=== PATIENT | male | born 1975 | race Caucasian/White ===

== ENCOUNTER 2022-04-02 15:57 | Emergency (ER) | payer SELFPAY ==
[2022-04-02 16:15] VITALS: BP 113/73; PULSE 66; RESP 16; TEMP 36; O2SAT 97
--- NOTE | 2022-04-02 17:11 | ED.GENADUL_ITS ---
Discharge Plan Disposition Patient Disposition: HOME Condition: Stable Discharge Details Clinical Impression: COVID-19 Primary Care Provider: None,None ED Provider: Rody Plascencia Home Meds and New Rx's Prescriptions: New Paxlovid (EUA) 150 mg x 2- 100 mg tablet See Rx Instructions .ROUTE .COMPLEX Qty: 30 0RF Rx Instructions: take TWO 150 mg tablets of nirmatrelvir with ONE 100 mg tablet of ritonavir twice daily for 5 days Discharge Instructions Instructions: COVID-19 (Coronavirus Disease 2019) (ED) Additional Instructions: Take the medications as directed twice daily for 5 days. Take bzoo-ogy-lwywkap medications for symptoms. Take a multivitamin including zinc, vitamin C and vitamin D3. Follow up with primary care provider in 3-5 days. Return to ED sooner if any worsening or concerns. Increase oral fluids. Please take Tylenol or Ibuprofen with food every 4-6 hours as needed for pain and swelling. Stand Alone Forms: Work Release Medical Decision Making 46-year-old male presents to the ER with chief complaint of fever, mild cough and reportedly had a home positive COVID test this afternoon. He is requesting antiviral medication. CMP ordered. CMP within normal limits we will send Paxil into the pharmacy on file. This text was generated using [employer] dictation system, please disregard any oddities of phrase or misspellings. HPI General Mode of arrival: ambulatory . Date/Time Provider Initiated Documentation: 04/02/22 16:27 . Limitations to Documentation: no limitations . Information obtained by: patient and RN notes reviewed . HPI Narrative: 46-year-old male presents to the ER with chief complaint of fever, mild cough and reportedly had a home positive COVID test this afternoon. He is requesting antiviral medication. He is a smoker. No reported history of kidney problems, high cholesterol, hypertension, heart problems. Does not take any medications on a regular basis. He is also requesting a work note. Related Data Home Medications Medication Instructions Recorded Confirmed nirmatrelvir 300 mg (150 mg x See Rx Instructions PO .COMPLEX 04/02/22 2)-ritonavir 100 mg tablet (EUA) #30 tabs (Paxlovid 300 mg () Previous Rx's Medication Instructions Recorded nirmatrelvir 300 mg (150 mg x See Rx Instructions PO .COMPLEX 04/02/22 2)-ritonavir 100 mg tablet (EUA) #30 tabs (Paxlovid 300 mg () Allergies Allergy/AdvReac Type Severity Reaction Status Date / Time Penicillins AdvReac Unknown Unverified 04/02/22 17:25 General Stated Complaint: RespSymp JANET: 4 Review of Systems All systems reviewed & are unremarkable except as noted in HPI and below Constitutional Constitutional: Reports fever(s) PFSH All Active Problems (Updated 04/02/22 @ 17:56 by Rody Plascencia) COVID-19 (Acute) Social History Smoking/Tobacco Use Status: Current every day Tobacco Type: cigarettes Smoking risk assessment performed?: Yes Substance use type: does not use Exam Narrative Exam Narrative: Constitutional: Alert and oriented x3. Appears stated age. Normal body habitus. Head: Normocephalic, no trauma. Eyes: Pupils PERRL, Red reflex noted, EOM's intact. Eyelids symmetrical without lesions, discharge, or swelling. ENT: Bilateral TM's WNL, External ear normal to inspection, no mastoid TTP, swelling, or erythema, Nasal turbinates WNL, no nasal discharge. Normal dentition, Posterior pharynx WNL, no exudate. Chest: RRR, Normal S1, S2, distal pulses intact. Resp: Lungs clear to auscultation bilaterally, no wheezes, rales, or rhonchi. Abdomen: Soft, non-distended, Normoactive bowel sounds all 4 quads. Musculoskeletal: Normal gait, 5/5 strength to all four extremities. Skin: No suspicious rashes or lesions. Capillary refill less than 2 sec. Neurologic: Cranial nerves II-XII intact. Alert and oriented x 3. Motor: No deficits noted. Sensory: Intact bilaterally all 4 extremities. Hematologic/Lymphatic: No ecchymosis, no lymphadenopathy. Course Vital Signs Vital signs: Vital Signs Temperature 36 C L 04/02/22 16:15 Pulse 66 04/02/22 16:15 Respiratory Rate 16 04/02/22 16:15 Blood Pressure 113/73 04/02/22 16:15 Pulse Oximetry 97 04/02/22 16:15 Temperature 36 C L 04/02/22 16:15 Temperature Source Skin 04/02/22 16:15 Pulse 66 04/02/22 16:15 Respiratory Rate 16 04/02/22 16:15 Blood Pressure 113/73 04/02/22 16:15 Blood Pressure Position Sitting 04/02/22 16:15 Pulse Oximetry 97 04/02/22 16:15 Oxygen Delivery Method Room Air 04/02/22 16:15 Oxygen Flow Rate 0 04/02/22 16:15 Pain Level 5 04/02/22 16:15 Comment 04/02/22 16:15
[2022-04-02 17:38] LABS: ALT 48 U/L (16-63); AST 36 U/L (15-37); Albumin 3.9 g/dL (3.4-5.0); Alkaline Phosphatase 84 U/L (46-116); Anion Gap 8.5 mmol/L (3-11); BUN 16 mg/dL (7-18); Bilirubin, Total 0.3 mg/dL (0.2-1.0); CO2 26.5 mmol/L (21.0-32.0); CREATININE 1.3 mg/dL (0.70-1.30); Calcium 8.5 mg/dL (8.5-10.1); Chloride 104 mmol/L (98-107); Estimated GFR 58.92 (mL/min/1.73m2); Glucose 99 mg/dL (74-106); Sodium 139 mmol/L (136-145); Total Protein 7.6 g/dL (6.4-8.2)
== END 2022-04-02 18:00 | disposition home or self-care (01) ==
PROVIDERS: Emergency Provider Registered Nurse Emergency
DX: U07.1 COVID-19 (principal)
CPT/HCPCS: 80053; 99283

== ENCOUNTER 2024-06-11 11:14 | Inpatient (IN) | payer MEDICAID, SELFPAY ==
[2024-06-11] VITALS (92 sets, daily range): BP systolic 79–194; BP diastolic 41–109; PULSE 61–207; RESP 5–43; TEMP 36.2–39.3; O2SAT 86–99
--- NOTE | 2024-06-11 11:15 | RT.EKG_ITS ---
APPROVED REPORT Exam: Resting ECG Reason for Exam: SOB, Chest Pressure Patient Location: E HR:184 bpm ECG Measurements Heart Rate 184 AXIS DC [id number] P [id number] QRSd 79 QRS 62 QT 254 T 32 QTc 455 Conclusion Atrial fibrillation with rapid V-rate 184
--- NOTE | 2024-06-11 11:15 | DI.RAD_ITS ---
Exam(s) XR PORTABLE CHEST AP EXAM: XR PORTABLE CHEST AP CLINICAL HISTORY: CP TECHNIQUE: 2D digital imaging was performed of the chest. One image was obtained. An AP view was ob tained. COMPARISON: No exams were available for comparison FINDINGS: MEDIASTINUM: Normal. HEART: Normal. PULMONARY VASCULATURE: Normal. LUNGS: There is an opacity in the right hilum. The lungs are otherwise clear. PLEURAL SPACE: No pleural effusion or pneumothorax. BONE:Within normal limits for the patient's age. OTHER FINDINGS:Normal. IMPRESSION: Opacity in the right hilum. This may represent the central pulmonary vasculature, central infiltrate or central mass/adenopathy. Follow-up with a CT scan of the chest with contrast is recommended. DATA REPOSITORY: RADIATION DOSE DELIVERED:
[2024-06-11] MEDS: dilTIAZem 25 MG/5 ML VIAL ×2 (11:30→11:36)
[2024-06-11 11:45] LABS: Lactate 1.9 mmol/L (0.6-1.4)
[2024-06-11 11:49] LABS: Abs Immature Grans 0.18 10^3/uL (0.0-0.06); Absolute Eosinophil Count 0.05 10^3/uL (0.0-0.7); Basophils % 0.6 %; Eosinophils % 0.3 %; HCT 49.9 % (40.0-50.0); HGB 16.9 g/dL (13.5-17.5); Lymphocytes % 3.4 %; MCH 31.6 pg (27.0-33.0); MCHC 33.9 % (32.0-36.0); MCV 93 fL (80-95); MPV 10.3 fL (8.0-11.0); Monocytes % 5.2 %; Neutrophils % 89.5 %; Platelet Count 215 10^3/uL (130-400); RBC 5.34 10^6/uL (4.36-5.78); RDW 12.4 % (11.8-14.1); RDW-SD 42.6 fL; WBC 17.79 10^3/uL (4.4-10.8)
[2024-06-11 11:50] LABS: Absolute Basophil Count 0.11 10^3/uL (0.0-0.2); Absolute Monocyte Count 0.93 10^3/uL (0.1-0.8); Absolute Neutrophil Count 15.92 10^3/uL (1.2-6.7)
[2024-06-11] MEDS: ACETAMINOPHEN 1,000 MG/100 ML BTL 400 MG IVPB (11:53)
--- NOTE | 2024-06-11 11:56 | ED.GENADUL_ITS ---
Discharge Plan Disposition Patient Disposition: Admit to [facility] Condition: Fair Discharge Details Chief Complaint: SOB Clinical Impression: Community acquired bacterial pneumonia, Atrial fibrillation with rapid ventricular response, Hyperglycemia, Sepsis Admit Date/Time: 06/11/24 12:44 Admit Provider: Arthur Teresa Attending Provider: Arthur Teresa Primary Care Provider: None,None ED Provider: Makeda Oconnor Discharge Data Discharge Date/Time-TO BE ENTERED AT DEPARTURE: 06/11/24 14:23 HPI General Date/Time Provider Initiated Documentation: 06/11/24 11:20 . Limitations to Documentation: physical limitation . Information obtained by: patient and family . HPI Narrative: 48-year-old gentleman with past medical history of daily alcohol use presents for evaluation of fever shortness of breath and palpitations. He reports that he has been having fever since Monday, 4 days, reports fever has been very high. Associated with some shortness of breath and difficulty talking. Denies any known productive cough. States when he stands up he feels very dizzy. says that he has been having some difficulty getting around because of how sick he has been. No known sick contacts. Related Data Home Medications ?Medication ?Instructions ?Recorded ?Confirmed nirmatrelvir 300 mg (150 mg See Rx Instructions PO .COMPLEX 04/02/22 x2)-ritonavir 100 mg tablet,dose #30 tabs pack (Paxlovid) Previous Rx's ?Medication ?Instructions ?Recorded nirmatrelvir 300 mg (150 mg See Rx Instructions PO .COMPLEX 04/02/22 x2)-ritonavir 100 mg tablet,dose #30 tabs pack (Paxlovid) Allergies Allergy/AdvReac Type Severity Reaction Status Date / Time Penicillins AdvReac Unknown Other (See Unverified 06/11/24 11:29 Comment) General Stated Complaint: SOB JANET: 1 Exam Narrative Exam Narrative: Review of Systems: All systems reviewed & are unremarkable except as noted in HPI and below Well-developed, ill-appearing NCAT PERRL, normal conjunctiva Tachycardic, normal blood pressure Tachypnea, some accessory muscle use, focal abnormal breath sounds in the right lower lung ponce Nondistended abdomen , soft nontender Extremities w/o deformity, no cyanosis, no edema skin is warm but has a mottled appearance no focal neurologic deficits Appropriate mood and affect Course Vital Signs Vital signs: Vital Signs Temperature 37.5 C 06/11/24 11:21 Pulse 187 H 06/11/24 11:21 Respiratory Rate 43 H 06/11/24 11:21 Blood Pressure 149/95 H 06/11/24 11:21 Pulse Oximetry 93 06/11/24 11:21 Temperature 37.5 C 06/11/24 11:21 Temperature Source Oral 06/11/24 11:21 Pulse 94 H 06/11/24 11:40 Pulse 141 H 06/11/24 11:41 Respiratory Rate 27 H 06/11/24 11:41 Respiratory Effort Short of Breath, Labored 06/11/24 11:38 Respiratory Depth Deep 06/11/24 11:38 Respiratory Pattern Tachypnea 06/11/24 11:38 Blood Pressure 122/72 06/11/24 11:40 Blood Pressure Mean 87 06/11/24 11:40 Blood Pressure Position Sitting 06/11/24 11:21 Pulse Oximetry 94 06/11/24 11:41 Oxygen Delivery Method Nasal Cannula 06/11/24 11:38 Oxygen Flow Rate 4 06/11/24 11:38 Pain Level 7 06/11/24 11:38 Lab/Test Results Lab/Test Results: 06/11/24 11:30 Blood Blood Culture - Pending 06/11/24 11:30 Blood Blood Culture - Pending Laboratory Tests Range/Units 06/11/24 06/11/24 06/11/24 11:22 11:30 14:22 WBC (4.4-10.8) 10^3/uL 17.79 H RBC (4.36-5.78) 10^6/uL 5.34 Hgb (13.5-17.5) g/dL 16.9 Hct (40.0-50.0) % 49.9 MCV (80-95) fL 93 MCH (27.0-33.0) pg 31.6 MCHC (32.0-36.0) % 33.9 RDW (11.8-14.1) % 12.4 Plt Count (130-400) 10^3/uL 215 MPV (8.0-11.0) fL 10.3 Immature Gran % % 1.0 Neutrophils % % 89.5 Lymphocytes % % 3.4 Monocytes % % 5.2 Eosinophils % % 0.3 Basophils % % 0.6 Nucleated RBC % (0.0-0.3) % 0.0 Absolute Neutrophils (1.2-6.7) 10^3/uL 15.92 H Absolute Lymphocytes (1.2-3.4) 10^3/uL 0.60 L Absolute Monocytes (0.1-0.8) 10^3/uL 0.93 H Absolute Eosinophils (0.0-0.7) 10^3/uL 0.05 Absolute Basophils (0.0-0.2) 10^3/uL 0.11 VBG Lactate (0.6-1.4) mmol/L 1.9 H Troponin I Cancelled Medical Decision Making Emergent evaluation of acute febrile illness. Initial differential includes viral illness, pneumonia, new onset cardiac dysrhythmia, less likely ACS. Given his fever, suspect an infectious etiology contributing to this new onset atrial fibrillation. Patient is hemodynamically stable but significantly tachycardic. On arrival. His heart rate was controlled with diltiazem. Initial plan for telemetry monitoring, lab work cultures and imaging. Anticipate admission for this patient. 1200 X-ray reviewed and independently interpreted, there appears to be a right basilar infiltrate consistent with his abnormal examination. Will treat with antibiotics. Reports allergy to penicillin, will use Levaquin. Lab work reviewed. Significant leukocytosis at 17 with shift. His lactic acid is slightly elevated at 1.9. Creatinine is slightly elevated at 1.9, though last check of this lab value was 2 years ago, unknown if this is acute derangement mild hyperglycemia without evidence of DKA. The troponin is negative. He was procalcitonin is elevated at 4.6. Viral testing negative. He does have an elevated temperature, some medication given for fever control. Will resuscitate with IV fluids and continue antibiotics. The patient's heart rate may be elevated due to persistent underlying illness and under resuscitation versus A-fib. Discussed with the hospitalist and patient will require ICU admission for further management. A CT scan was obtained to further evaluate the infection in the lung, this did not demonstrate a pulmonary embolism as a source of his new onset A-fib. It does demonstrate large infectious focus in the right lung. Because of the size of the infection I have added vancomycin to his antibiotic regimen. After period of observation in the emergency department, he has had persistent persistent tachycardia despite fever control and resuscitation, given this I we will go ahead and started diltiazem infusion. I have updated the hospitalist and the patient will be admitted to [facility] ICU for further management. Medical Records Medical records reviewed: Yes I reviewed the patient's medical records. Lab Data Lab results reviewed: Yes I reviewed the patient's lab results. Quality:[facility] Health Related Social Needs: No Data to Display Critical Care Time Critical Care Time Critical Care Time: Yes Total Critical Care Time: 38 Attestation: CRITICAL CARE Upon my evaluation, this patient had a high probability of imminent or life- threatening deterioration due to sepsis pneumonia atrial fibrillation which required my direct attention, intervention, and personal management. I have personally provided 38 minutes of critical care time exclusive of time spent on separately billable procedures. Time includes review of laboratory data, radiology results, discussion with consultants, and monitoring for potential decompensation. Interventions were performed as documented above PFSH All Active Problems Sepsis (Acute) Hyponatremia (Acute) DVT prophylaxis (Acute) Acute kidney injury (Acute) Hyperglycemia (Acute) Alcohol use (Acute) Atrial fibrillation with rapid ventricular response (Acute) Community acquired bacterial pneumonia (Acute) Smoker (Acute) Medical History COVID-19 Family History Uncle Diabetes Father Heart disease Mother Diabetes cardiomyopathy Social History Smoking/Tobacco Use Status: Current every day Tobacco Type: cigarettes Smoking risk assessment performed?: Yes Alcohol Intake: current Alcohol Intake frequency: 3 or more drinks per day Alcohol type: beer Counseling given: Yes Counseling provided: provider counseling and reduce to 2 or less/day Substance use type: does not use Housing: house Additional Social history: Lives with mother, group home GF Arline, her son in [place]. Works at [employer] in [place], moved from [place] in 2000
[2024-06-11 12:04] LABS: INR 1.1 (0.9-1.1); PTT Activated 34.8 sec (23.6-32.8); Prothrombin Time 11.3 sec (9.1-11.1)
[2024-06-11 12:05] LABS: ALT 34 U/L (16-63); AST 35 U/L (15-37); Albumin 2.8 g/dL (3.4-5.0); Alkaline Phosphatase 71 U/L (46-116); Anion Gap 13.6 mmol/L (3-11); BUN 25 mg/dL (7-18); Bilirubin, Total 0.51 mg/dL (0.2-1.0); CO2 21.4 mmol/L (21.0-32.0); CREATININE 1.9 mg/dL (0.70-1.30); Calcium 8.9 mg/dL (8.5-10.1); Chloride 98 mmol/L (98-107); Estimated GFR 42.44 (mL/min/1.73m2); Glucose 145 mg/dL (74-106); Magnesium 1.8 mg/dL (1.8-2.4); Potassium 3.6 mmol/L (3.5-5.1); Sodium 133 mmol/L (136-145); Total Protein 8.3 g/dL (6.4-8.2); Troponin I < 50 ng/L (< or =60)
[2024-06-11] MEDS: levoFLOXacin 750 MG/150 ML BAG 100 MG IVPB (12:06)
[2024-06-11] MEDS: Metoprolol 5 MG/5 ML VIAL IVP (12:09)
[2024-06-11] MEDS: Lactated Ringers 500 ML IV ×2 (12:12→19:43)
[2024-06-11 12:20] LABS: Procalcitonin 4.6 ng/mL
[2024-06-11 12:24] LABS: COVID-19 PCR Negative (Negative); Influenza A PCR Negative (Negative); Influenza B PCR Negative (Negative); RSV PCR Negative (Negative)
[2024-06-11 12:25] LABS: Source Nasopharynx
[2024-06-11] MEDS: Omnipaque 350 MG/ML 100 ML BTL IJ (13:41)
[2024-06-11] MEDS: Normal Saline - Diluent 50 ML VIAL IJ (13:42)
[2024-06-11] MEDS: Lactated Ringers 1,000 ML 1000 ML IV (13:47)
--- NOTE | 2024-06-11 13:48 | DI.CT_ITS ---
Exam(s) CT CHEST PE CTA EXAM: CT CHEST PE CTA CLINICAL HISTORY: sob , consolidation on xr. TECHNIQUE: Imaging Protocol: Axial CT angiography was performed with multi-slice acquisition and mu lti-planar and/or 3D reconstructions. CONTRAST MATERIAL: Intravenous: Omnipaque 350 contrast volume:100 mL COMPARISON: CR XR PORTABLE CHEST AP from 06/11/2024 FINDINGS: Tracheobronchial tree: Patent where visualized. Pulmonary parenchyma: There is a consolidation in the posterior aspect of the right upper lobe and th e right lower lobe with air bronchograms consistent with pneumonia. No architectural distortion. Pulmonary Arteries: No evidence of filling defect to suggest pulmonary emboli. Mediastinum and Elina: There are enlarged lymph nodes seen in the right hilum and mediastinum which ar e likely reactive. The esophagus is unremarkable. Visualized thyroid gland: Unremarkable. Pleura: No effusion or pneumothorax. Heart: Cardiomegaly. No coronary artery calcifications are seen. No pericardial effusion. Aorta: Thoracic aorta non-dilated. No evidence of dissection. Upper abdomen: Unremarkable. Soft tissues: Unremarkable. Bones: Within normal limits for the patient's age. IMPRESSION: 1. No evidence of pulmonary embolism, thoracic aortic dissection or aneurysm. 2. Consolidation in the right upper lobe and right lower lobe consistent with pneumonia. 3. Enlarged lymph nodes in the mediastinum and right hilum which are likely reactive. RADIATION DOSE DELIVERED: Total DLP DATA REPOSITORY: All CT scans at this facility are submitted to the National Radiology Data Registry (NRDR) Dose Index Registry (DIR) with the [employer] (ACR). RADIATION OPTIMIZATION: All CT scans at this facility use at least one of these dose optimization te chniques: automated exposure control; mA and/or kV adjustment per patient size (includes targeted exa ms where dose is matched to clinical indication); or iterative reconstruction.
--- NOTE | 2024-06-11 13:59 | W.PC.ACHO ---
Registration Status: Primary Language: Preferred Language: ED Information & Data Chief Complaint SOB 06/11/24 11:57 Triage Note sob/dizzy/difficulty talking 06/11/24 11:21 /high fevers/headache since monday. Most Recent Vital Signs Temperature 37.7 C H 06/11/24 12:21 Temperature Source Oral 06/11/24 11:21 Pulse 86 06/11/24 13:16 Pulse 120 H 06/11/24 13:20 Respiratory Rate 25 H 06/11/24 13:20 Respiratory Effort Short of Breath, Labored 06/11/24 11:38 Respiratory Depth Deep 06/11/24 11:38 Respiratory Pattern Tachypnea 06/11/24 11:38 Blood Pressure 101/72 06/11/24 13:16 Blood Pressure Mean 79 06/11/24 13:16 Blood Pressure Position Sitting 06/11/24 11:21 Pulse Oximetry 96 06/11/24 13:20 Oxygen Delivery Method Nasal Cannula 06/11/24 11:38 Oxygen Flow Rate 4 06/11/24 11:38 Pain Level 7 06/11/24 11:38 Allergies Penicillins Adverse Reaction (Unknown, Unverified 06/11/24 11:29) Other (See Comment) from childhood,unable to recall Precautions Isolation Standard precaution 06/11/24 11:38 Active Medications Generic Name Dose Route Start Last Admin Trade Name Stephany PRN Reason Stop Dose Admin Iohexol 100 ml 06/11/24 13:45 06/11/24 13:41 Omnipaque 350 Mg/Ml 100 Ml Btl IJ 07/11/24 23:59 100 ml DIRECTED JENNIFER Administration Sodium Chloride 50 ml 06/11/24 13:45 06/11/24 13:42 Normal Saline - Diluent 50 Ml Vial IJ 50 ml .FOR DI USE JENNIFER Administration IV IV Catheter Type [Left Peripheral IV Antecubital] IV Catheter Type [Left Forearm Saline Lock ] IV Catheter Type [Right Peripheral IV Antecubital] IV Catheter Gauge [Left 18 Antecubital] IV Catheter Gauge [Left 18 Forearm] IV Catheter Gauge [Right 18 Antecubital] Diet Orders Category Date Time Status Regular/Normal [DIET] Nutrition 06/11/24 Dinner Active Diagnostics 06/11/24 06/11/24 06/11/24 Range/Units 14:22 11:30 11:22 WBC 17.79 H (4.4-10.8) 10^3/uL RBC 5.34 (4.36-5.78) 10^6/uL Hgb 16.9 (13.5-17.5) g/dL Hct 49.9 (40.0-50.0) % MCV 93 (80-95) fL MCH 31.6 (27.0-33.0) pg MCHC 33.9 (32.0-36.0) % RDW 12.4 (11.8-14.1) % Plt Count 215 (130-400) 10^3/uL MPV 10.3 (8.0-11.0) fL Immature Gran % 1.0 % Neutrophils % 89.5 % Lymphocytes % 3.4 % Monocytes % 5.2 % Eosinophils % 0.3 % Basophils % 0.6 % Nucleated RBC % 0.0 (0.0-0.3) % Absolute Neutrophils 15.92 H (1.2-6.7) 10^3/uL Absolute Lymphocytes 0.60 L (1.2-3.4) 10^3/uL Absolute Monocytes 0.93 H (0.1-0.8) 10^3/uL Absolute Eosinophils 0.05 (0.0-0.7) 10^3/uL Absolute Basophils 0.11 (0.0-0.2) 10^3/uL PT 11.3 H (9.1-11.1) sec INR 1.1 (0.9-1.1) APTT 34.8 H (23.6-32.8) sec VBG Lactate 1.9 H (0.6-1.4) mmol/L Sodium 133 L (136-145) mmol/L Potassium 3.6 (3.5-5.1) mmol/L Chloride 98 (98-107) mmol/L Carbon Dioxide 21.4 (21.0-32.0) mmol/L Anion Gap 13.6 H (3-11) mmol/L BUN 25 H (7-18) mg/dL Creatinine 1.9 H (0.70-1.30) mg/dL Est GFR (CKD-EPI 2020) 42.44 (mL/min/1.73m2) Glucose 145 H (74-106) mg/dL Calcium 8.9 (8.5-10.1) mg/dL Magnesium 1.8 (1.8-2.4) mg/dL Total Bilirubin 0.51 (0.2-1.0) mg/dL AST 35 (15-37) U/L ALT 34 (16-63) U/L Alkaline Phosphatase 71 (46-116) U/L Troponin I Cancelled < 50 (< or =60) ng/L Total Protein 8.3 H (6.4-8.2) g/dL Albumin 2.8 L (3.4-5.0) g/dL Procalcitonin 4.6 ng/mL COVID-19 Source SARS-CoV-2 (PCR) (Negative) Influenza Type A (PCR) (Negative) Influenza Type B (PCR) (Negative) RSV (PCR) (Negative) 06/11/24 Range/Units 11:20 WBC (4.4-10.8) 10^3/uL RBC (4.36-5.78) 10^6/uL Hgb (13.5-17.5) g/dL Hct (40.0-50.0) % MCV (80-95) fL MCH (27.0-33.0) pg MCHC (32.0-36.0) % RDW (11.8-14.1) % Plt Count (130-400) 10^3/uL MPV (8.0-11.0) fL Immature Gran % % Neutrophils % % Lymphocytes % % Monocytes % % Eosinophils % % Basophils % % Nucleated RBC % (0.0-0.3) % Absolute Neutrophils (1.2-6.7) 10^3/uL Absolute Lymphocytes (1.2-3.4) 10^3/uL Absolute Monocytes (0.1-0.8) 10^3/uL Absolute Eosinophils (0.0-0.7) 10^3/uL Absolute Basophils (0.0-0.2) 10^3/uL PT (9.1-11.1) sec INR (0.9-1.1) APTT (23.6-32.8) sec VBG Lactate (0.6-1.4) mmol/L Sodium (136-145) mmol/L Potassium (3.5-5.1) mmol/L Chloride (98-107) mmol/L Carbon Dioxide (21.0-32.0) mmol/L Anion Gap (3-11) mmol/L BUN (7-18) mg/dL Creatinine (0.70-1.30) mg/dL Est GFR (CKD-EPI 2020) (mL/min/1.73m2) Glucose (74-106) mg/dL Calcium (8.5-10.1) mg/dL Magnesium (1.8-2.4) mg/dL Total Bilirubin (0.2-1.0) mg/dL AST (15-37) U/L ALT (16-63) U/L Alkaline Phosphatase (46-116) U/L Troponin I (< or =60) ng/L Total Protein (6.4-8.2) g/dL Albumin (3.4-5.0) g/dL Procalcitonin ng/mL COVID-19 Source Nasopharynx SARS-CoV-2 (PCR) Negative (Negative) Influenza Type A (PCR) Negative (Negative) Influenza Type B (PCR) Negative (Negative) RSV (PCR) Negative (Negative) 06/11/24 11:30 Blood Culture - Pending Blood 06/11/24 11:30 Blood Culture - Pending Blood Intake and Output - 24 Hour Total 06/11/24 11:14 thru 06/11/24 13:46 Intake Total 600 Balance 600 Weight 99.79 kg Intake: IV 600 Falls Risk Assessment History of Falls No History 06/11/24 11:38 Contributing Factors No Factors 06/11/24 11:38 Ambulatory Aids Independent 06/11/24 11:38 Tubes/Lines None 06/11/24 11:38 Gait Evaluation No gait disturbance 06/11/24 11:38 Fall Total Score 0 06/11/24 11:38 Level of Risk Standard/Low Risk 06/11/24 11:38 v v v v v v v v v Sending and/or Receiving Nurses: Please use comment section below to note any information pertinent to the patient hand-off not included above. Information / Comments: Report received from:Gina Izquierdo RN
[2024-06-11] MEDS: Ketorolac 15 MG/ML VIAL 10 MG IVP (14:09)
[2024-06-11] MEDS: VANCOMYCIN/WATER (PEG) 1.5 GM/300 ML BAG IVPB (14:14)
[2024-06-11] MEDS: dilTIAZem 125 MG in Normal Saline 100 ML IV (14:14)
--- NOTE | 2024-06-11 15:11 | HPE_ITS ---
Date of service: 06/11/24 Time of Service: 15:11 Assessment and Plan Assessment and plan (1) Community acquired bacterial pneumonia: Status: Acute Assessment and plan: Meets severe sepsis criteria with Elevated WBC, tachycardia/tachypnea, fever, CHANCE. Started on levofloxacin given PCN allergy. Vancomycin added, will get nasal PCR before continuing With diarrhea must consider legionella, this and pneumoncoccal testing sent He has wheezing, at risk for COPD. Add steroid and levalbuterol given atrial fibrillation. (2) Atrial fibrillation with rapid ventricular response: Status: Acute Assessment and plan: Triggered by respiratory infection. Troponins and EKG not c/w ischema. Alcohol and BMI also risk factors. Add TSH Need to further assess to assign [id number] score (HTN, DM?) For now, continue diltiazem drip, goal in higher range given acute febrile illness (100-120bpm) (3) Alcohol use: Status: Acute Assessment and plan: Discussed at-risk use, risk for pneumonia and Afib among other things. I don't think he is at risk of withdrawal but monitor (4) Hyperglycemia: Status: Acute Assessment and plan: He may have type 2 DM as he has hyperglycemia and hasn't had regular care. A1c pending. Anion gap a/w acute illness but no acidotic, not c/w DKA. (5) Acute kidney injury: Status: Acute Assessment and plan: Cr up 0.6 from previous baseline in 2022. Likely pre-renal with acute infection. Follow this, work up further if not coming down. (6) Smoker: Status: Acute Assessment and plan: Discussed cessation, declines NRT for now (7) Hyponatremia: Status: Acute Assessment and plan: a/w hypovolemic state and lung infection, should correct with fluids (8) DVT prophylaxis: Status: Acute Assessment and plan: LMWH History of Present Illness History of Present Illness Chief Complaint: short of breath, fever, diarrhea N arrative: 48 yo M smoker who hasn't had regular medical care for 20 years presenting with 4 days of increasing shortness of breath, cough, malaise, and fevers. He first started with a cough about 2 weeks ago. Monday, 4 days prior to admission, he started getting fever. Along with the fever he was getting shortness of breath, pain with deep breath, and loose stools any time he ate. He hasn't had solids since Monday, just fluids. His cough has been non-productive. He also has felt more lightheaded for the past couple days so he finally came in for care. He hasn't felt palpitations. Feels hot, then cold sweats. Review of Systems All systems reviewed & are unremarkable except as noted in HPI and below Constitutional Constitutional: Reports excessive sweating and Reports fatigue ENT Ears, Nose, Mouth, and Throat: Denies dysphagia, Denies nasal congestion, Denies nasal discharge and Denies sore throat Gastrointestinal Gastrointestinal: Denies melena, Denies hematochezia, Denies dysphagia, Reports diarrhea, Reports nausea and Denies vomiting Genitourinary Genitourinary: Denies difficulty urinating, Denies dysuria and Reports urinary frequency Endocrine Endocrine: Reports excessive sweating, Reports fatigue, Reports polydipsia and Reports polyuria PFSH All Active Problems Hyponatremia (Acute) DVT prophylaxis (Acute) Acute kidney injury (Acute) Hyperglycemia (Acute) Alcohol use (Acute) Atrial fibrillation with rapid ventricular response (Acute) Community acquired bacterial pneumonia (Acute) Smoker (Acute) Medical History COVID-19 Family History Uncle Diabetes Father Heart disease Mother Diabetes cardiomyopathy Social History Smoking/Tobacco Use Status: Current every day Tobacco Type: cigarettes Smoking risk assessment performed?: Yes Alcohol Intake: current Alcohol Intake frequency: 3 or more drinks per day Alcohol type: beer Counseling given: Yes Counseling provided: provider counseling and reduce to 2 or less/day Substance use type: does not use Housing: house Additional Social history: Lives with mother, laborer marine terminal GF Arline, her son in [place]. Works at [employer] in [place], moved from [place] in 2000 Meds Allergies and Home Medications Allergies Allergy/AdvReac Type Severity Reaction Status Date / Time Penicillins AdvReac Unknown Other (See Unverified 06/11/24 11:29 Comment) Home Medications ?Medication ?Instructions ?Recorded ?Confirmed ?Type nirmatrelvir 300 mg (150 mg See Rx Instructions PO .COMPLEX 04/02/22 Rx x2)-ritonavir 100 mg tablet,dose #30 tabs pack (Paxlovid) Exam Narrative Exam Narrative: GEN: Alert and oriented x 4, pleasant and cooperative, gives linear history. Diaphoretic/flushed, but otherwise no acute distress at rest. HEENT: Head atraumatic. Conjunctiva clear, no icterus. PEERL, EOMI. no rhinorrhea. MMM, OP benign. Neck is supple with no masses or lymphadenopathy, trachea midline LUNGS: No rales, mild tachypnea in 20s, expiratory wheeze right>left. Mild increase in respiratory effort CV: tachycardic and irregular with no murmurs, gallops, or rubs. ABD: active bowel sounds, soft, nontender and nondistended. No masses. EXT: no cyanosis, clubbing, or edema MSK: No joint redness or swelling NEURO: CN 2-12 grossly intact. Normal movement of 4 extremities. Normal speech and coordination. No tremor SKIN: No rashes or open wounds. PSYCH: normal mood and affect, normal thought process Results Imaging Chest x-ray: report reviewed (Opacity in the right hilum. This may represent the central pulmonary vasculature, central infiltrate or central mass/adenopathy. Follow-up with a CT scan of the chest with contrast is recommended. ) and image reviewed CT scan - chest: report reviewed (see below) EKG: report reviewed (atrial fibrillation rate 184, no ischemia) and image reviewed Imaging Studies: chest CT: 1. No evidence of pulmonary embolism, thoracic aortic dissection or aneurysm. 2. Consolidation in the right upper lobe and right lower lobe consistent with pneumonia. 3. Enlarged lymph nodes in the mediastinum and right hilum which are likely reactive. Labs 06/11/24 11:22 06/11/24 11:30 Labs: Laboratory Results - last 24 hr 06/11/24 06/11/24 06/11/24 11:20 11:22 11:30 WBC 17.79 H RBC 5.34 Hgb 16.9 Hct 49.9 MCV 93 MCH 31.6 MCHC 33.9 RDW 12.4 Plt Count 215 MPV 10.3 Immature Gran % 1.0 Neutrophils % 89.5 Lymphocytes % 3.4 Monocytes % 5.2 Eosinophils % 0.3 Basophils % 0.6 Nucleated RBC % 0.0 Absolute Neutrophils 15.92 H Absolute Lymphocytes 0.60 L Absolute Monocytes 0.93 H Absolute Eosinophils 0.05 Absolute Basophils 0.11 PT 11.3 H INR 1.1 APTT 34.8 H VBG Lactate 1.9 H Sodium 133 L Potassium 3.6 Chloride 98 Carbon Dioxide 21.4 Anion Gap 13.6 H BUN 25 H Creatinine 1.9 H Est GFR (CKD-EPI 2020) 42.44 Glucose 145 H Calcium 8.9 Magnesium 1.8 Total Bilirubin 0.51 AST 35 ALT 34 Alkaline Phosphatase 71 Troponin I < 50 Total Protein 8.3 H Albumin 2.8 L Procalcitonin 4.6 COVID-19 Source Nasopharynx SARS-CoV-2 (PCR) Negative Influenza Type A (PCR) Negative Influenza Type B (PCR) Negative RSV (PCR) Negative 06/11/24 14:22 WBC RBC Hgb Hct MCV MCH MCHC RDW Plt Count MPV Immature Gran % Neutrophils % Lymphocytes % Monocytes % Eosinophils % Basophils % Nucleated RBC % Absolute Neutrophils Absolute Lymphocytes Absolute Monocytes Absolute Eosinophils Absolute Basophils PT INR APTT VBG Lactate Sodium Potassium Chloride Carbon Dioxide Anion Gap BUN Creatinine Est GFR (CKD-EPI 2020) Glucose Calcium Magnesium Total Bilirubin AST ALT Alkaline Phosphatase Troponin I Cancelled Total Protein Albumin Procalcitonin COVID-19 Source SARS-CoV-2 (PCR) Influenza Type A (PCR) Influenza Type B (PCR) RSV (PCR) Last Vital Signs Temp 37.1 C 06/11/24 14:43 Pulse 132 H 06/11/24 14:43 Resp 35 H 06/11/24 14:35 BP 124/74 06/11/24 14:35 Pulse Ox 96 06/11/24 14:43 Time Spent Time spent with Patient: >75 minutes Time was spent: preparing to see the patient(eg.review tests), obtaining and/or reviewing separately otained hiistory, ordering medications,tests, procedures, referring, communicating with other health care consultant, indepentently interpreting results, counseling the patient and care coordination
--- NOTE | 2024-06-11 15:49 | PHACLINREV_ITS ---
Pharmacy Admission Review Admission Clinical Review Admission Pharmacy Review: Hyponatremia (Acute) DVT prophylaxis (Acute) Acute kidney injury (Acute) Hyperglycemia (Acute) Alcohol use (Acute) Atrial fibrillation with rapid ventricular response (Acute) Community acquired bacterial pneumonia (Acute) Smoker (Acute) Penicillins Adverse Reaction (Unknown, Unverified 06/11/24 11:29) Other (See Comment) Resuscitation Status Full Code Height 6 ft 3 in Weight 115.6 kg Pharmacy Admission Review Renal Dosing Renal Dosing: BUN 25 mg/dL (7-18) H 06/11/24 11:30 Creatinine 1.9 mg/dL (0.70-1.30) H 06/11/24 11:30 Medications needing adjustments: Intervened (CrCl 63.7 mL/min) List of meds needing interventions: Current medications are okay. Provider init ially put in levofloxacin order as q48h, reached out as q48h dosing is recommended when CrCl is 20 - <50. Adjusted order to q24h per provider request. Anticoagulation Anticoagulation: Hgb 16.9 g/dL (13.5-17.5) 06/11/24 11:22 Hct 49.9 % (40.0-50.0) 06/11/24 11:22 Plt Count 215 10^3/uL (130-400) 06/11/24 11:22 INR 1.1 (0.9-1.1) 06/11/24 11:30 Creatinine 1.9 mg/dL (0.70-1.30) H 06/11/24 11:30 DVT Prophylaxis: Reviewed Medications: Enoxaparin (40mg daily) Relevant Labs Relevant Labs: Sodium 133 mmol/L (136-145) L 06/11/24 11:30 Potassium 3.6 mmol/L (3.5-5.1) 06/11/24 11:30 Chloride 98 mmol/L (98-107) 06/11/24 11:30 Magnesium 1.8 mg/dL (1.8-2.4) 06/11/24 11:30 Electrolytes, C-Reactive P, ESR: Reviewed (Na 133, glucose 145) Cardiac Review Cardiac Review: Troponin I Cancelled 06/11/24 14:22 Blood Pressure 124/74 1435 Blood Pressure 79/41 1401 Blood Pressure 121/93 1356 Blood Pressure 136/81 1351 Blood Pressure 143/83 1347 Blood Pressure 149/109 1345 Blood Pressure 101/72 1332 BP, HR, EF%: Reviewed (HR 132, RR 35) QTc Review QTc: Reviewed (455 from 06/11/24) IV to PO Switch IV Medications: Reviewed (diltiazem, methylprednisolone and levofloxacin) Home Meds Home Med List reviewed: Reviewed Relevent Home Meds Not ordered & why?: No home meds listed Current Meds Current Medication Order Review: Reviewed Pharmacy Antibiotic Review Relevant Labs: Relevant Labs 06/11/24 11:30 Procalcitonin 4.6 WBC 17.79 10^3/uL (4.4-10.8) H 06/11/24 11:22 Procalcitonin 4.6 ng/mL 06/11/24 11:30 Temperature 37.1 C Temperature 37.7 C Temperature 39.3 C Temperature 37.5 C Pharmacy Antibiotic Activity: C/S review and Reviewed, no change Comments: Patient is on levofloxacin 750mg q24h, day 1, for community acquired pneumonia (has penicillin allergy). Blood cultures are pending.
[2024-06-11] MEDS: methylPREDNISolone SUCC 125 MG VIAL IVP (16:16)
[2024-06-11] MEDS: Enoxaparin 40 MG/0.4 ML SYR SC (16:16)
[2024-06-11] MEDS: Normal Saline Flush 10 ML SYR IVP ×2 (16:16→21:15)
[2024-06-11 18:03] LABS: Bilirubin Negative (Negative); Blood Large (Negative); Clarity Clear (Clear); Glucose Negative (Negative); Ketones Negative (Negative); Leukocyte Esterase Negative (Negative); Nitrite Negative (Negative); Specific Gravity 1.015 (1.005-1.025); pH 5.5 (5-8)
[2024-06-11 18:15] LABS: Bacteria Negative HPF (Negative); C & S Indicated? C&S Done As Ordered; Casts 0-2 Hyaline LPF (Negative); Crystals Negative HPF (Negative); Epithelial Cells Rare HPF (Negative); Mucus Trace (Negative); WBC 0-2 HPF (0-5)
--- NOTE | 2024-06-11 19:09 | HPE_ITS ---
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 He is a daily smoker. He does have exacerbation of COPD type symptoms that is on Solu-Medrol with nebulizers not carrying a diagnosis of COPD or on chronic inhalers. He appears to have sleep apnea with moderate obesity and has never had an evaluation for cardiac dysrhythmia. Presenting symptoms were that is acute pneumonia mostly though he did have some chest tightness which is now resolved on IV diltiazem and adequate heart rate control. He did have rapid ventricular response when he presented to the ED. He feels better presently with treatment of his pneumonia, respiratory treatments, Solu-Medrol on board and IV hydration with heart rate control. Troponins were negative and will be trended. Echocardiogram will be ordered for the morning. He is a full code. (2) Sepsis: Start date: 06/11/24 Status: Acute Assessment and plan: Patient does meet sepsis criteria but is not hypotensive. Will treat his pneumonia and continue treating atrial fibrillation with rapid ventricular response. He is on DVT prophylaxis but should consider Eliquis long-term. This may be a problem with poor medical follow-up. He does need help with insurance and follow-up with local PCP to be established. Continue IV fluids and antibiotics with Levaquin being given and vancomycin to be considered if sepsis criteria are continuing. Qualifiers: Acute renal failure type: unspecified Sepsis acute organ dysfunction status: with acute organ dysfunction Sepsis type: sepsis due to unspecified organism Severe sepsis acute organ dysfunction type: acute renal failure S evere sepsis shock status: without septic shock Qualified Code(s): A41.9 - Sepsis, unspecified organism; R65.20 - Severe sepsis without septic shock; N17.9 - Acute kidney failure, unspecified (3) Community acquired bacterial pneumonia: Start date: 06/11/24 Status: Acute Assessment and plan: Patient does have right upper and lower lobe pneumonia which is quite significant. IV antibiotics to include Levaquin the patient had received 1 dose of vancomycin. Vancomycin will not be continued for now with patient not having severe severe sepsis or shock. Blood cultures were performed. (4) Acute kidney injury: Start date: 06/11/24 Status: Acute Assessment and plan: IV hydration with trending labs. (5) Hyponatremia: Start date: 06/11/24 Status: Acute Assessment and plan: Trend labs while treating acute pneumonia with no clear restriction as of yet. Consider further evaluation if persists. This may be associate with daily beer drinking. (6) ALYSSA (obstructive sleep apnea): Status: Chronic Assessment and plan: Patient has been diagnosed but snores loudly when approached sleeping and is moderately obese. He also is a smoker. I will check a VBG and long-term patient needs further evaluation and treatment of ALYSSA if meeting criteria. He was advised to lose weight and stop smoking tobacco. History of Present Illness History of Present Illness Chief Complaint: Fever with shortness of breath and palpitations with chest pressure Narrative: This is a 48-year-old male patient who moved to [place] from [place] and has not been seeing any healthcare provider or on any medical therapy. He presented to the ED with a 4-day history of fever with shortness of breath worsening, cough with productive and palpitation with chest pressure. He was found to be in atrial fibrillation with rapid ventricular response been initiated on IV diltiazem drip and to have a right upper and lower lobe pneumonia with moderate sepsis without shock. He is a daily smoker but only 5 cigarettes a day and a daily drinker of 2 beers per day. He did have some bronchospasm and was initiated on nebulizers with Solu-Medrol which will treat the sepsis as well as bronchospasm. He has not been seen by a local physician but does have loud snoring which was apparent when I first approached him in the ICU bed. He may have undiagnosed ALYSSA as well which may contribute to his atrial fibrillation which is a new diagnosis. He does have daily alcohol use which may also be contributing to this problem. He is on IV fluid resuscitation and IV antibiotics feeling somewhat better being hospitalized midday. He denies any previous problems with alcohol withdrawal. He does appear dry. He will continue treatment for community-acquired pneumonia without expanding antibiotic therapy though he did receive vancomycin on evaluation in the ED. This could be continued if he has fever or continued symptoms of sepsis. He is a full code. Review of Systems Narrative: 13 point review of systems otherwise unrevealing or stable. Patient minimizes his medical problems. PFSH All Active Problems ALYSSA (obstructive sleep apnea) (Chronic) Sepsis (Acute) Hyponatremia (Acute) DVT prophylaxis (Acute) Acute kidney injury (Acute) Hyperglycemia (Acute) Alcohol use (Acute) Atrial fibrillation with rapid ventricular response (Acute) Community acquired bacterial pneumonia (Acute) Smoker (Acute) Medical History COVID-19 Family History Uncle Diabetes Father Heart disease Mother Diabetes cardiomyopathy Social History Smoking/Tobacco Use Status: Current every day Tobacco Type: cigarettes Smoking risk assessment performed?: Yes Alcohol Intake: current Alcohol Intake frequency: 3 or more drinks per day Alcohol type: beer Counseling given: Yes Counseling provided: provider counseling and reduce to 2 or less/day Substance use type: does not use Housing: house Additional Social history: Lives with mother, intermediate teacher GF Arline, her son in [place]. Works at [employer] in [place], moved from [place] in 2000 Meds Allergies and Home Medications Allergies Allergy/AdvReac Type Severity Reaction Status Date / Time Penicillins AdvReac Unknown Other (See Unverified 06/11/24 11:29 Comment) Home Medications ?Medication ?Instructions ?Recorded ?Confirmed ?Type nirmatrelvir 300 mg (150 mg See Rx Instructions PO .COMPLEX 04/02/22 Rx x2)-ritonavir 100 mg tablet,dose #30 tabs pack (Paxlovid) Exam Narrative Exam Narrative: General: Patient appears older than stated age, unkempt, alert and oriented x 3 with slightly pressured speech. He is in moderate distress from his discomfort with acute pneumonia. He is not tachypneic with conversation. HEENT: Normocephalic, coarsened facial features, eyes with pupils equal and react to light symmetrically, extraocular movement intact and sclera anicteric. Oropharynx with dry mucosa and poor dentition with missing and carious teeth. Neck: Supple without JVD. Back: Stooped posture without CVA tenderness. Lungs: Decreased aeration of the right hemithorax with occasional expiratory crackle not focalizing. No expiratory wheeze at the time of my exam. Bronchovesicular breath sounds diffusely. Better aeration over the left side. Heart: Irregularly irregular rhythm with no murmurs or gallops appreciated. No tachycardia. Abdomen: Obese contour, soft nontender to palpation without palpable hepatosplenomegaly. Bowel sounds positive all quadrants. Genitalia/rectal: Exam deferred. Extremities: Without clubbing, cyanosis or pitting edema. good capillary refill. Skin: Warm, moist and unkempt but normal color. Actinic changes over sun exposed areas. Neuro: Cranial nerves II through XII gross intact, no focalizing motor deficits. No tremor. Psych: Slightly depressed mood with flat affect. Patient minimizes medical problems. No abnormal thought processes. Remote and recent memory grossly intact. Results Imaging Imaging Studies: EXAM: CT CHEST PE CTA CLINICAL HISTORY: sob , consolidation on xr. TECHNIQUE: Imaging Protocol: Axial CT angiography was performed with multi- slice acquisition and multi-planar and/or 3D reconstructions. CONTRAST MATERIAL: Intravenous: Omnipaque 350 contrast volume:100 mL COMPARISON: CR XR PORTABLE CHEST AP from 06/11/2024 FINDINGS: Tracheobronchial tree: Patent where visualized. Pulmonary parenchyma: There is a consolidation in the posterior aspect of the right upper lobe and the right lower lobe with air bronchograms consistent with pneumonia. No architectural distortion. Pulmonary Arteries: No evidence of filling defect to suggest pulmonary emboli. Mediastinum and [place]: There are enlarged lymph nodes seen in the right hilum and mediastinum which are likely reactive. The esophagus is unremarkable. Visualized thyroid gland: Unremarkable. Pleura: No effusion or pneumothorax. Heart: Cardiomegaly. No coronary artery calcifications are seen. No pericardial effusion. Aorta: Thoracic aorta non-dilated. No evidence of dissection. Upper abdomen: Unremarkable. Soft tissues: Unremarkable. Bones: Within normal limits for the patient's age. IMPRESSION: 1. No evidence of pulmonary embolism, thoracic aortic dissection or aneurysm. 2. Consolidation in the right upper lobe and right lower lobe consistent with pneumonia. 3. Enlarged lymph nodes in the mediastinum and right hilum which are likely reactive. Labs 06/12/24 05:30 06/12/24 05:30 Labs: Laboratory Results - last 24 hr 06/11/24 06/11/24 06/11/24 11:20 11:22 11:30 WBC 17.79 H RBC 5.34 Hgb 16.9 Hct 49.9 MCV 93 MCH 31.6 MCHC 33.9 RDW 12.4 Plt Count 215 MPV 10.3 Immature Gran % 1.0 Neutrophils % 89.5 Lymphocytes % 3.4 Monocytes % 5.2 Eosinophils % 0.3 Basophils % 0.6 Nucleated RBC % 0.0 Absolute Neutrophils 15.92 H Absolute Lymphocytes 0.60 L Absolute Monocytes 0.93 H Absolute Eosinophils 0.05 Absolute Basophils 0.11 PT 11.3 H INR 1.1 APTT 34.8 H VBG Lactate 1.9 H Sodium 133 L Potassium 3.6 Chloride 98 Carbon Dioxide 21.4 Anion Gap 13.6 H BUN 25 H Creatinine 1.9 H Est GFR (CKD-EPI 2020) 42.44 Glucose 145 H Calcium 8.9 Magnesium 1.8 Total Bilirubin 0.51 AST 35 ALT 34 Alkaline Phosphatase 71 Troponin I < 50 Total Protein 8.3 H Albumin 2.8 L Procalcitonin 4.6 Urine Color Urine Clarity Urine pH Ur Specific [place] Urine Protein Urine Ketones Urine Blood Urine Nitrite Urine Bilirubin Urine Urobilinogen Ur Leukocyte Esterase Urine RBC Urine WBC Ur Epithelial Cells Urine Crystals Urine Bacteria Urine Casts Urine Mucus Ur Culture Indicated? Urine Glucose COVID-19 Source Nasopharynx SARS-CoV-2 (PCR) Negative Influenza Type A (PCR) Negative Influenza Type B (PCR) Negative RSV (PCR) Negative 06/11/24 06/11/24 14:22 17:50 WBC RBC Hgb Hct MCV MCH MCHC RDW Plt Count MPV Immature Gran % Neutrophils % Lymphocytes % Monocytes % Eosinophils % Basophils % Nucleated RBC % Absolute Neutrophils Absolute Lymphocytes Absolute Monocytes Absolute Eosinophils Absolute Basophils PT INR APTT VBG Lactate Sodium Potassium Chloride Carbon Dioxide Anion Gap BUN Creatinine Est GFR (CKD-EPI 2020) Glucose Calcium Magnesium Total Bilirubin AST ALT Alkaline Phosphatase Troponin I Cancelled Total Protein Albumin Procalcitonin Urine Color Yellow Urine Clarity Clear Urine pH 5.5 Ur Specific [place] 1.015 Urine Protein 100 H Urine Ketones Negative Urine Blood Large H Urine Nitrite Negative Urine Bilirubin Negative Urine Urobilinogen 1.0 H Ur Leukocyte Esterase Negative Urine RBC 5-10 H Urine WBC 0-2 Ur Epithelial Cells Rare Urine Crystals Negative Urine Bacteria Negative Urine Casts 0-2 Hyaline Urine Mucus Trace Ur Culture Indicated? C&S Done As Ordered Urine Glucose Negative COVID-19 Source SARS-CoV-2 (PCR) Influenza Type A (PCR) Influenza Type B (PCR) RSV (PCR) Last Vital Signs Temp 36.2 C L 06/11/24 16:34 Pulse 110 H 06/11/24 18:31 Resp 25 H 06/11/24 19:01 BP 106/80 06/11/24 18:31 Pulse Ox 92 06/11/24 19:01 PAWSS Have you Been Recently Intoxicated or Drunk Within the Last 30 days?: No Have you Ever Experienced Previous Episodes of Alcohol Withdrawal?: No Have you ever Experienced Withdrawal Seizures?: No Have you ever Experienced Delirium Tremens(DT)s?: No Have you ever undergone Alcohol Rehabilitation Treatment (i.e, inpt ot outpatient treatment programs)?: No Have you ever Experienced Blackouts?: No Have you ever Combined Alcohol with other Downers within the last 90 days?: No Have you ever Combined Alcohol with any other Substance of Abuse during the last 90 days?: No Positive Blood Alcohol level on Presentation? [PCS.BAL]: No Evidence of Increased Autonomic Activity (i.e. HR>120, tremor, sweating, agitation, nausea)?: No Result: 0 Time Spent Time spent with Patient: >75 minutes Time was spent: preparing to see the patient(eg.review tests), obtaining and/or reviewing separately otained hiistory, ordering medications,tests, procedures, indepentently interpreting results, counseling the patient and care coordination
[2024-06-11] MEDS: Lactated Ringers 1,000 ML 150 ML IV (19:43)
[2024-06-11] MEDS: Levalbuterol 1.25 MG/3 ML UPD VIAL UPD (20:30)
[2024-06-11] MEDS: dilTIAZem 125 MG in Normal Saline 100 ML 15 MG IV (23:22)
[2024-06-11 23:38] LABS: BE (Venous) -4 mmol/L (-2-3); HCO3 (Venous) 21 mmol/L (23-28); O2 Sat (Venous) 95 %; TCO2 (Venous) 18 mmol/L (24-29); pCO2 (Venous) 33 mmHg (41-51); pH (Venous) 7.41 (7.31-7.41); pO2 (Venous) 71 mmHg
[2024-06-12] VITALS (69 sets, daily range): BP systolic 89–140; BP diastolic 57–114; PULSE 83–143; RESP 16–35; TEMP 36.1–36.8; O2SAT 84–96
[2024-06-12] MEDS: Lactated Ringers 1,000 ML 150 ML IV ×4 (00:11→21:25)
[2024-06-12] MEDS: methylPREDNISolone SUCC 40 MG VIAL 80 MG IVP ×3 (00:12→15:50)
[2024-06-12 00:21] LABS: Troponin I < 50 ng/L (< or =60)
[2024-06-12 06:01] LABS: Troponin I < 50 ng/L (< or =60)
[2024-06-12] MEDS: dilTIAZem 125 MG in Normal Saline 100 ML 15 MG IV ×2 (06:09→14:51)
[2024-06-12 06:12] LABS: Abs Immature Grans 0.14 10^3/uL (0.0-0.06); Absolute Basophil Count 0.05 10^3/uL (0.0-0.2); Absolute Eosinophil Count 0.08 10^3/uL (0.0-0.7); Absolute Monocyte Count 0.32 10^3/uL (0.1-0.8); Basophils % 0.3 %; Eosinophils % 0.5 %; HCT 42.8 % (40.0-50.0); HGB 14.7 g/dL (13.5-17.5); Immature Grans % 0.9 %; Lymphocytes % 3.9 %; MCH 31.8 pg (27.0-33.0); MCHC 34.3 % (32.0-36.0); MCV 93 fL (80-95); Monocytes % 2.1 %; Neutrophils % 92.3 %; RBC 4.62 10^6/uL (4.36-5.78); RDW 12.9 % (11.8-14.1); RDW-SD 43.8 fL; WBC 15.39 10^3/uL (4.4-10.8)
[2024-06-12 06:17] LABS: Diff Comment Diff Reviewed; Polychromasia Present
[2024-06-12 06:19] LABS: Anion Gap 14.7 mmol/L (3-11); BUN 29 mg/dL (7-18); CO2 20.3 mmol/L (21.0-32.0); CREATININE 1.3 mg/dL (0.70-1.30); Calcium 8.6 mg/dL (8.5-10.1); Calculated LDL 81 mg/dL (<100); Chloride 100 mmol/L (98-107); Cholesterol 143 mg/dL (<200); Estimated GFR 66.93 (mL/min/1.73m2); Glucose 148 mg/dL (74-106); HDL Cholesterol 14 mg/dL (40-60); Potassium 3.8 mmol/L (3.5-5.1); Sodium 135 mmol/L (136-145); TSH (W/Ref FT4) 0.42 uIU/mL (0.36-3.74); Triglyceride 243 mg/dL (<150)
[2024-06-12 06:33] LABS: Hemoglobin A1C 5.8 % (<5.7)
--- NOTE | 2024-06-12 08:35 | W.PULMCC ---
General Date of Service Date of service: 06/12/24 Time of Service: 08:36 Admit Date Admit Date: 06/11 Reason for Admission to ICU: CAP and Afib w/ RVR Assessment and Plan Assessment and plan (1) Community acquired bacterial pneumonia: Status: Acute Assessment and plan: Severe CPA w/ mediastinal JULIAN presumed reactive but given his hx/o smoking and exposures cannot completely R/O underlying malignancy. Agree w/ choice of Abx, awaiting Legionella and Pneumoccocal Ag. He will need outpt f/u w/ Pulmonary for PFTs and repeat CT. (2) Atrial fibrillation with rapid ventricular response: Status: Acute Assessment and plan: We cannot determine if this is new Afib as he has not seeked medical care in 20 years. Will need to start anticoagulation w/ Eliquis. Also suggest starting oral cardizem so drip can be weaned off. awaiting echo results will need lipip lowering drug (3) Sepsis: Status: Acute Assessment and plan: Severe sepsis 2/2 to CAP. Improved on CHANCE but need to monitor UO Qualifiers: Sepsis type: sepsis due to unspecified organism Sepsis acute organ dysfunction status: with acute organ dysfunction Severe sepsis acute organ dysfunction type: acute renal failure Acute renal failure type: unspecified Severe sepsis shock status: without septic shock Qualified Code(s): A41.9 - Sepsis, unspecified organism; R65.20 - Severe sepsis without septic shock; N17.9 - Acute kidney failure, unspecified (4) Diarrhea: Status: Acute Qualifiers: Diarrhea type: presumed infectious Qualified Code(s): R19.7 - Diarrhea, unspecified (5) Smoker: Status: Acute Assessment and plan: smoking cessation discussed. (6) Snoring: Status: Acute Assessment and plan: High risk for ALYSSA Will need oupt sleep study (7) Acute kidney injury: Status: Acute Assessment and plan: monitor UO and I/O likely pre renal, improving Recommendations I&O: Intake & Output 06/09/24 06/10/24 06/11/24 06/12/24 23:59 23:59 23:59 23:59 Intake Total 3705.000 / 3705.000 1131.75 / 1131.75 Output Total 275 / 275 Balance 3430.000 / 3430.000 1131.75 / 1131.75 Weight 115.6 kg 116.7 kg Date of Last Bowel Movement: 06/12/24 Code Status: Pt has no insurance. Will need to have case worker assistance. Please have him f/o w/ Pulmonary after DC. Resuscitation Status Full Code Subjective Critical and life-threatening events over the past 24 hours: 48yo man w/ no medical care for the last 20 years presented 06/11 w/ significatn SOB, fever and diarrhea. In the ED he was also found to have Afib iw/ RVR. Started on Ceftriaxone/Azithro/Vanco Diltiazem drip and admitted to ICU. this am he feels much better, still w/ diarrhea. 2L O2 NC Active smoker 1/2 pack a day x36y Exam Narrative Exam Narrative: AOX3 NAD HEENT no jaundice Lungs subtle exp wheezing, R base w/ egophony, ronchi CV Irreg Irreg S1S2 Abd soft BS+ Ext no edema well perfused. Most Recent VS/Results Last Vital Signs Temp 36.5 C 06/12/24 07:35 Pulse 121 H 06/12/24 07:22 Resp 24 06/12/24 07:22 BP 118/87 06/12/24 07:22 Pulse Ox 96 06/12/24 07:22 CTA 06/11 1. No evidence of pulmonary embolism, thoracic aortic dissection or aneurysm. 2. Consolidation in the right upper lobe and right lower lobe consistent with pneumonia. 3. Enlarged lymph nodes in the mediastinum and right hilum which are likely reactive. Laboratory Results - last 24 hr 06/11/24 06/11/24 06/11/24 11:20 11:22 11:30 WBC 17.79 H RBC 5.34 Hgb 16.9 Hct 49.9 MCV 93 MCH 31.6 MCHC 33.9 RDW 12.4 Plt Count 215 MPV 10.3 Immature Gran % 1.0 Neutrophils % 89.5 Lymphocytes % 3.4 Monocytes % 5.2 Eosinophils % 0.3 Basophils % 0.6 Nucleated RBC % 0.0 Absolute Neutrophils 15.92 H Absolute Lymphocytes 0.60 L Absolute Monocytes 0.93 H Absolute Eosinophils 0.05 Absolute Basophils 0.11 RBC Morphology Polychromasia PT 11.3 H INR 1.1 APTT 34.8 H VBG pH VBG pCO2 VBG pO2 VBG HCO3 VBG Total CO2 VBG O2 Saturation VBG Base Excess VBG Lactate 1.9 H Sodium 133 L Potassium 3.6 Chloride 98 Carbon Dioxide 21.4 Anion Gap 13.6 H BUN 25 H Creatinine 1.9 H Est GFR (CKD-EPI 2020) 42.44 Glucose 145 H Hemoglobin A1c Calcium 8.9 Magnesium 1.8 Total Bilirubin 0.51 AST 35 ALT 34 Alkaline Phosphatase 71 Troponin I < 50 Total Protein 8.3 H Albumin 2.8 L Triglycerides Total Cholesterol LDL Cholesterol, Calc HDL Cholesterol Procalcitonin 4.6 TSH Urine Color Urine Clarity Urine pH Ur Specific [place] Urine Protein Urine Ketones Urine Blood Urine Nitrite Urine Bilirubin Urine Urobilinogen Ur Leukocyte Esterase Urine RBC Urine WBC Ur Epithelial Cells Urine Crystals Urine Bacteria Urine Casts Urine Mucus Ur Culture Indicated? Urine Glucose COVID-19 Source Nasopharynx SARS-CoV-2 (PCR) Negative Influenza Type A (PCR) Negative Influenza Type B (PCR) Negative RSV (PCR) Negative 06/11/24 06/11/24 06/11/24 14:22 17:50 23:33 WBC RBC Hgb Hct MCV MCH MCHC RDW Plt Count MPV Immature Gran % Neutrophils % Lymphocytes % Monocytes % Eosinophils % Basophils % Nucleated RBC % Absolute Neutrophils Absolute Lymphocytes Absolute Monocytes Absolute Eosinophils Absolute Basophils RBC Morphology Polychromasia PT INR APTT VBG pH 7.41 VBG pCO2 33 L VBG pO2 71 VBG HCO3 21 L VBG Total CO2 18 L VBG O2 Saturation 95 VBG Base Excess -4 L VBG Lactate Sodium Potassium Chloride Carbon Dioxide Anion Gap BUN Creatinine Est GFR (CKD-EPI 2020) Glucose Hemoglobin A1c Calcium Magnesium Total Bilirubin AST ALT Alkaline Phosphatase Troponin I Cancelled < 50 Total Protein Albumin Triglycerides Total Cholesterol LDL Cholesterol, Calc HDL Cholesterol Procalcitonin TSH Urine Color Yellow Urine Clarity Clear Urine pH 5.5 Ur Specific [place] 1.015 Urine Protein 100 H Urine Ketones Negative Urine Blood Large H Urine Nitrite Negative Urine Bilirubin Negative Urine Urobilinogen 1.0 H Ur Leukocyte Esterase Negative Urine RBC 5-10 H Urine WBC 0-2 Ur Epithelial Cells Rare Urine Crystals Negative Urine Bacteria Negative Urine Casts 0-2 Hyaline Urine Mucus Trace Ur Culture Indicated? C&S Done As Ordered Urine Glucose Negative COVID-19 Source SARS-CoV-2 (PCR) Influenza Type A (PCR) Influenza Type B (PCR) RSV (PCR) 06/12/24 05:30 WBC 15.39 H RBC 4.62 Hgb 14.7 D Hct 42.8 MCV 93 MCH 31.8 MCHC 34.3 RDW 12.9 Plt Count MPV Immature Gran % 0.9 Neutrophils % 92.3 Lymphocytes % 3.9 Monocytes % 2.1 Eosinophils % 0.5 Basophils % 0.3 Nucleated RBC % 0.0 Absolute Neutrophils 14.20 H Absolute Lymphocytes 0.60 L Absolute Monocytes 0.32 Absolute Eosinophils 0.08 Absolute Basophils 0.05 RBC Morphology See Below Polychromasia Present PT INR APTT VBG pH VBG pCO2 VBG pO2 VBG HCO3 VBG Total CO2 VBG O2 Saturation VBG Base Excess VBG Lactate Sodium 135 L Potassium 3.8 Chloride 100 Carbon Dioxide 20.3 L Anion Gap 14.7 H BUN 29 H Creatinine 1.3 Est GFR (CKD-EPI 2020) 66.93 Glucose 148 H Hemoglobin A1c 5.8 H Calcium 8.6 Magnesium Total Bilirubin AST ALT Alkaline Phosphatase Troponin I < 50 Total Protein Albumin Triglycerides 243 H Total Cholesterol 143 LDL Cholesterol, Calc 81 HDL Cholesterol 14 L Procalcitonin TSH 0.42 Urine Color Urine Clarity Urine pH Ur Specific [place] Urine Protein Urine Ketones Urine Blood Urine Nitrite Urine Bilirubin Urine Urobilinogen Ur Leukocyte Esterase Urine RBC Urine WBC Ur Epithelial Cells Urine Crystals Urine Bacteria Urine Casts Urine Mucus Ur Culture Indicated? Urine Glucose COVID-19 Source SARS-CoV-2 (PCR) Influenza Type A (PCR) Influenza Type B (PCR) RSV (PCR) Review of Systems All systems reviewed & are unremarkable except as noted in HPI and below Time spent with patient Time spent in Critical Care: 35 Time spent in Critical care included: Coordination of care, Chart review, Documenting critically ill care, Time at immediate bedside and Discussing critically ill care with other medical staff Note: 35
[2024-06-12] MEDS: Normal Saline Flush 10 ML SYR IVP ×2 (08:41→20:15)
--- NOTE | 2024-06-12 09:29 | RESPIRATORY ---
Spoke with patient about noted ALYSSA diagnosis and patient advised he had never been told he had ALYSSA nor has he had a prior sleep study.
--- NOTE | 2024-06-12 10:10 | PDOC.CMIN ---
Date of service: 06/12/24 Time of Service: 10:10 Care Management Initial Assmt Initial Assessment Reason for Hospitalization: Pneumonia, afib Functional Status/Living Situation Patient Presentation: Calvin was awake and lying in bed when CM met with him. He is accompanied by his s/o Adina. Calvin is uninsured and has not had medical care in 20+ years. Calvin is interested in signing up for Medicaid and has already outreached to HCW at [facility]. He would also like to establish care with a PCP, CM will provide patient with a list of local PCP's and discussed the [facility] hospital follow up process. Town of Residence: [place] Resides with: Other (Mother and girlfriend) Significant Other/Family: Out of area (Brother Zane lives in [place]) Caregiver/Guardian: None Natural Supports: Partner, brother and mother Employment Status: Employed Instrumental Activities of Daily Living (ADLs): Independent Medications Medication Management: Issues/Barriers (No Prescription coverage) with Cost Physical Functioning/Mobility Assistive Device: None Advance Directives Advance Directives: Do you have an Advance Directive: N 04/02/22 15:57 AD On File at [facility]: N 04/02/22 15:57 Date Asked 06/11/24 06/12/24 09:37 AD Date Reviewed COLST On File at [facility] COLST Date Scanned Code Status Resuscitation Status Full Code Insurance Coverage/Financial Issues Insurance: None Care Team Visit Care Team Role Provider Type None None Primary Care Provider NON-[facility] STAFF PHYSICIAN Makeda Oconnor MD Emergency Provider [facility] STAFF PHYSICIAN Arthur Teresa Admit Provider [facility] STAFF PHYSICIAN Attending Provider Discharge Potential Discharge Needs: Other (T-doc follow up ) Anticipated Barriers to Discharge: None Identified Patient/Family Education Needs: Review discharge instructions, discuss Ask Me Three Transportation: Private vehicle Plan: Calvin continues to require close monitoring and treatment of CAP in the ICU. Anticipate, Calvin will discharge home via private vehicle with family when Medically cleared by provider. Pt will follow up with discharge plan of care and community providers, as recommended. In the absence of an established PCP, hospital follow up with be scheduled using the [facility] schedule. PFSH All Active Problems Dyslipidemia (Acute) Snoring (Acute) Diarrhea (Acute) ALYSSA (obstructive sleep apnea) (Chronic) Sepsis (Acute) Hyponatremia (Acute) DVT prophylaxis (Acute) Acute kidney injury (Acute) Hyperglycemia (Acute) Alcohol use (Acute) Atrial fibrillation with rapid ventricular response (Acute) Community acquired bacterial pneumonia (Acute) Smoker (Acute) Medical History COVID-19 Family History Uncle Diabetes Father Heart disease Mother Diabetes cardiomyopathy Social History Smoking/Tobacco Use Status: Current every day Tobacco Type: cigarettes Smoking risk assessment performed?: Yes Alcohol Intake: current Alcohol Intake frequency: 3 or more drinks per day Alcohol type: beer Counseling given: Yes Counseling provided: provider counseling and reduce to 2 or less/day Substance use type: does not use Housing: house Additional Social history: Lives with mother, buttermilk drier operator GF Arline, her son in [place]. Works at [employer] in [place], moved from [place] in 2000 SDOH(Care Management) Screening Will the Patient Participate in the Screening?: Yes Do you worry about having a steady place to live?: no Problems where you live: no known problems In the past 12 months, have you had to go without electric, gas, oil or water in your home?: no Have you or anyone in your house had to go without enough food to eat?: no Has lack of transportation kept you from medical appointments or from doing things needed for daily living?: no Has anyone in your support network made you feel unsafe for any reason?: no
[2024-06-12] MEDS: levoFLOXacin 750 MG/150 ML BAG 100 MG IVPB (11:22)
--- NOTE | 2024-06-12 13:32 | W.PM.PROGNOT ---
Date of Service Date of service: 06/12/24 Time of Service: 08:32 Assessment and Plan Assessment and plan (1) Community acquired bacterial pneumonia: Status: Acute Assessment and plan: Meets severe sepsis criteria with Elevated WBC, tachycardia/tachypnea, fever, CHANCE. Started on levofloxacin given PCN allergy. Vancomycin added x 1, MRSA PCR ordered but not done yet, d/w nursing With diarrhea must consider legionella, this and pneumoncoccal testing sent. He has wheezing, at risk for COPD. Added steroid and levalbuterol given atrial fibrillation. Appreciate input from Dr. Lewis. Patient will need f/u CT to confirm this is not post-obstructive pneumonia as he is at risk for lung cancer. (2) Atrial fibrillation with rapid ventricular response: Status: Acute Assessment and plan: Possibly triggered by respiratory infection, but may have been chronic. Troponins and EKG not c/w ischema. Alcohol and BMI also risk factors. TSH okay. A1c not c/w DM, he may have HTN but need to further assess to assign [id number] score On diltiazem drip, goal in higher range given acute febrile illness (100-120bpm). I will start transition to oral. (3) Alcohol use: Status: Acute Assessment and plan: Have discussed at-risk use, risk for pneumonia and Afib among other things. No signs of withdrawal at this point. (4) Hyperglycemia: Status: Acute Assessment and plan: A1c c/w pre-DM, no severe hyperglycemia despite steroids. (5) Acute kidney injury: Status: Acute Assessment and plan: Cr normalized to previous baseline in 2022 with hydration. (6) Smoker: Status: Acute Assessment and plan: Discussed cessation, declines NRT for now (7) Hyponatremia: Status: Acute Assessment and plan: a/w hypovolemic state and lung infection, improved with fluids (8) DVT prophylaxis: Status: Acute Assessment and plan: LMWH (9) Diarrhea: Status: Acute Assessment and plan: c. diff toxin assay ordered if this continues. legionella pending. Qualifiers: Diarrhea type: presumed infectious Qualified Code(s): R19.7 - Diarrhea, unspecified (10) Dyslipidemia: Status: Acute Assessment and plan: a/w metabolic syndrome, address as outpatient. Subjective Subjective Patient reports: feels better, tolerating a regular diet and diarrhea; denies vomiting or fever Interval history since last seen: Feeling a little better. Still SOB and hard to breath deep. Levalbuterol really helped. Had loose stool with incontinence with cough this morning. he is eating and drinking. Still sweaty but less hot/cold Exam Narrative Exam Narrative: GEN: Alert and oriented, less diaphoretic, no acute distress at rest. LUNGS: No rales, mild tachypnea in 20s, expiratory wheeze diffusely with rales on right lower lung field. Mild increase in respiratory effort CV: tachycardic and irregular with no murmurs, gallops, or rubs. ABD: active bowel sounds, soft, nontender and nondistended. No masses. EXT: no cyanosis, clubbing, or edema Objective Last Vital Signs Temp 36.5 C 06/12/24 07:35 Pulse 97 H 06/12/24 09:00 Resp 22 06/12/24 09:00 BP 120/100 H 06/12/24 09:00 Pulse Ox 95 06/12/24 09:00 Laboratory Results - last 24 hr 06/11/24 06/11/24 06/12/24 17:50 23:33 05:30 WBC 15.39 H RBC 4.62 Hgb 14.7 D Hct 42.8 MCV 93 MCH 31.8 MCHC 34.3 RDW 12.9 Plt Count MPV Immature Gran % 0.9 Neutrophils % 92.3 Lymphocytes % 3.9 Monocytes % 2.1 Eosinophils % 0.5 Basophils % 0.3 Nucleated RBC % 0.0 Absolute Neutrophils 14.20 H Absolute Lymphocytes 0.60 L Absolute Monocytes 0.32 Absolute Eosinophils 0.08 Absolute Basophils 0.05 RBC Morphology See Below Polychromasia Present VBG pH 7.41 VBG pCO2 33 L VBG pO2 71 VBG HCO3 21 L VBG Total CO2 18 L VBG O2 Saturation 95 VBG Base Excess -4 L Sodium 135 L Potassium 3.8 Chloride 100 Carbon Dioxide 20.3 L Anion Gap 14.7 H BUN 29 H Creatinine 1.3 Est GFR (CKD-EPI 2020) 66.93 Glucose 148 H Hemoglobin A1c 5.8 H Calcium 8.6 Troponin I < 50 < 50 Triglycerides 243 H Total Cholesterol 143 LDL Cholesterol, Calc 81 HDL Cholesterol 14 L TSH 0.42 Urine Color Yellow Urine Clarity Clear Urine pH 5.5 Ur Specific [place] 1.015 Urine Protein 100 H Urine Ketones Negative Urine Blood Large H Urine Nitrite Negative Urine Bilirubin Negative Urine Urobilinogen 1.0 H Ur Leukocyte Esterase Negative Urine RBC 5-10 H Urine WBC 0-2 Ur Epithelial Cells Rare Urine Crystals Negative Urine Bacteria Negative Urine Casts 0-2 Hyaline Urine Mucus Trace Ur Culture Indicated? C&S Done As Ordered Urine Glucose Negative PAWSS Have you Been Recently Intoxicated or Drunk Within the Last 30 days?: No Have you Ever Experienced Previous Episodes of Alcohol Withdrawal?: No Have you ever Experienced Withdrawal Seizures?: No Have you ever Experienced Delirium Tremens(DT)s?: No Have you ever undergone Alcohol Rehabilitation Treatment (i.e, inpt ot outpatient treatment programs)?: No Have you ever Experienced Blackouts?: No Have you ever Combined Alcohol with other Downers within the last 90 days?: No Have you ever Combined Alcohol with any other Substance of Abuse during the last 90 days?: No Positive Blood Alcohol level on Presentation? [PCS.BAL]: No Evidence of Increased Autonomic Activity (i.e. HR>120, tremor, sweating, agitation, nausea)?: No Result: 0 Time Spent with Patient Time Spent with Patient: >50 minutes Time was spent: preparing to see the patient(eg.review tests), obtaining and/or reviewing separately otained hiistory, ordering medications,tests, procedures, referring, communicating with other health career development coordinator/teacher, indepentently interpreting results, counseling the patient and care coordination
[2024-06-12] MEDS: dilTIAZem 30 MG TAB PO (14:38)
[2024-06-12 15:29] LABS: MRSA PCR Negative (Negative)
[2024-06-12] MEDS: Enoxaparin 40 MG/0.4 ML SYR SC (15:49)
[2024-06-12] MEDS: dilTIAZem 30 MG TAB 60 MG PO (20:21)
[2024-06-13] VITALS (46 sets, daily range): BP systolic 95–138; BP diastolic 64–98; PULSE 81–117; RESP 16–42; TEMP 36.3–37.1; O2SAT 87–96
[2024-06-13] MEDS: methylPREDNISolone SUCC 40 MG VIAL 80 MG IVP ×3 (00:09→15:56)
[2024-06-13] MEDS: dilTIAZem 125 MG in Normal Saline 100 ML 10 MG IV (00:55)
[2024-06-13] MEDS: Lactated Ringers 1,000 ML 150 ML IV (04:30)
[2024-06-13] MEDS: Normal Saline Flush 10 ML SYR IVP ×4 (04:34→20:09)
[2024-06-13 06:41] LABS: Abs Immature Grans 0.18 10^3/uL (0.0-0.06); Absolute Basophil Count 0.03 10^3/uL (0.0-0.2); Absolute Monocyte Count 0.82 10^3/uL (0.1-0.8); Absolute Neutrophil Count 13.64 10^3/uL (1.2-6.7); Basophils % 0.2 %; HCT 39.6 % (40.0-50.0); HGB 13.4 g/dL (13.5-17.5); Immature Grans % 1.2 %; Lymphocytes % 5.2 %; MCH 31.8 pg (27.0-33.0); MCHC 33.8 % (32.0-36.0); MCV 94 fL (80-95); MPV 11.1 fL (8.0-11.0); Monocytes % 5.3 %; Neutrophils % 88.1 %; Nucleated RBC 0.2 % (0.0-0.3); Platelet Count 195 10^3/uL (130-400); RBC 4.22 10^6/uL (4.36-5.78); RDW 13.1 % (11.8-14.1); RDW-SD 44.8 fL; WBC 15.48 10^3/uL (4.4-10.8)
[2024-06-13 06:57] LABS: Anion Gap 9.6 mmol/L (3-11); BUN 21 mg/dL (7-18); CO2 25.4 mmol/L (21.0-32.0); Calcium 8.4 mg/dL (8.5-10.1); Chloride 99 mmol/L (98-107); Estimated GFR 91.69 (mL/min/1.73m2); Glucose 157 mg/dL (74-106); Potassium 3.8 mmol/L (3.5-5.1); Sodium 134 mmol/L (136-145)
--- NOTE | 2024-06-13 08:00 | W.PULMCC ---
General Date of Service Date of service: 06/13/24 Time of Service: 08:00 Assessment and Plan Assessment and plan (1) Community acquired bacterial pneumonia: Status: Acute Assessment and plan: Improved clinically. Legionella/Pneumoccocal Ag pending. will need repeat CT in 6-8 weeks and f/u w/ Pulm clinic upon DC. (2) Snoring: Status: Acute Assessment and plan: High suspicion for ALYSSA. Will need Sleep study as outpt. (3) Atrial fibrillation with rapid ventricular response: Status: Acute Assessment and plan: Increase Diltiazem to 90mg q8h wean off diltiazem drip (4) Acute kidney injury: Status: Acute Assessment and plan: Improved. DC IVF (5) Diarrhea: Status: Acute Assessment and plan: Improved Qualifiers: Diarrhea type: presumed infectious Qualified Code(s): R19.7 - Diarrhea, unspecified Recommendations I&O: Intake & Output 06/10/24 06/11/24 06/12/24 06/13/24 23:59 23:59 23:59 23:59 Intake Total 3705.000 / 3705.000 4919.00 / 4919.00 1089.167 / 1089.167 Output Total 275 / 275 1600 / 1600 800 / 800 Balance 3430.000 / 3430.000 3319.00 / 3319.00 289.167 / 289.167 Weight 115.6 kg 116.7 kg Date of Last Bowel Movement: 06/12/24 Infectious Disease: D3 Levofloxacin - total 7 days. s/p 1 dose Vanco MRSA swab negative Lines: Peripherals Prophylaxis: Lovenox Code Status: Resuscitation Status Full Code Subjective Critical and life-threatening events over the past 24 hours: No major events overnight. on RA now still on cardizem drip at 10mg/hr Afebrile Legionella/Pneumo Ag pending Exam Const Other: AOx3 NAD Resp Auscultation: rhonchi right lower Cardio Rhythm: abnormal rhythm irregularly irregular Extrem Other: no edema Most Recent VS/Results Last Vital Signs Temp 36.8 C 06/13/24 07:00 Pulse 102 H 06/13/24 07:00 Resp 20 06/13/24 07:00 BP 128/94 H 06/13/24 07:00 Pulse Ox 94 06/13/24 07:00 Laboratory Results - last 24 hr 06/12/24 06/13/24 13:45 05:42 WBC 15.48 H RBC 4.22 L Hgb 13.4 L Hct 39.6 L MCV 94 MCH 31.8 MCHC 33.8 RDW 13.1 Plt Count 195 MPV 11.1 H Immature Gran % 1.2 Neutrophils % 88.1 Lymphocytes % 5.2 Monocytes % 5.3 Eosinophils % 0.0 Basophils % 0.2 Nucleated RBC % 0.2 Absolute Neutrophils 13.64 H Absolute Lymphocytes 0.80 L Absolute Monocytes 0.82 H Absolute Eosinophils 0.00 Absolute Basophils 0.03 Sodium 134 L Potassium 3.8 Chloride 99 Carbon Dioxide 25.4 Anion Gap 9.6 BUN 21 H Creatinine 1.0 Est GFR (CKD-EPI 2020) 91.69 Glucose 157 H Calcium 8.4 L MRSA (TEM-PCR) Negative Review of Systems All systems reviewed & are unremarkable except as noted in HPI and below Time spent with patient Time spent in Critical Care: 30 Time spent in Critical care included: Coordination of care, Chart review, Documenting critically ill care, Time at immediate bedside and Discussing critically ill care with other medical staff
[2024-06-13] MEDS: dilTIAZem 30 MG TAB 90 MG PO ×3 (08:37→20:04)
--- NOTE | 2024-06-13 09:17 | PGE_ITS ---
Date of Service Date of service: 06/13/24 Time of Service: 09:17 Assessment and Plan Assessment and plan (1) Severe sepsis: Status: Acute Assessment and plan: -Meets severe sepsis criteria with Elevated WBC, tachycardia/tachypnea, fever, CHANCE. -Started on levofloxacin given PCN allergy. Vancomycin added x 1, MRSA PCR ordered but not done yet, d/w nursing -With diarrhea must consider legionella, this and pneumoncoccal testing sent. -He has wheezing, at risk for COPD. Added steroid and levalbuterol given atrial fibrillation. -Appreciate input from Dr. Orta; patient will need f/u CT to confirm this is not post-obstructive pneumonia as he is at risk for lung cancer. (2) Community acquired bacterial pneumonia: Status: Acute Assessment and plan: -as noted above (3) Atrial fibrillation with rapid ventricular response: Status: Acute Assessment and plan: -Possibly triggered by respiratory infection, but may have been chronic. -Troponins and EKG not c/w ischema. Alcohol and BMI also risk factors. TSH okay. -A1c not c/w DM, he may have HTN but need to further assess to assign [id number] score -had been on diltiazem drip and 60mg PO TID -dilt drip discontinued, PO dilt increased to 120mg PO TID as of AM 06/13 (4) Alcohol use: Status: Acute Assessment and plan: -preious physician discussed at-risk use, risk for pneumonia and Afib among other things. -No signs of withdrawal at this point. (5) Hyperglycemia: Status: Acute Assessment and plan: -A1c c/w pre-DM, no severe hyperglycemia despite steroids. (6) Acute kidney injury: Status: Acute Assessment and plan: -Cr normalized to previous baseline in 2022 with hydration. (7) Smoker: Status: Acute Assessment and plan: -Discussed cessation, declines NRT for now (8) Hyponatremia: Status: Acute Assessment and plan: -a/w hypovolemic state and lung infection, improved with fluids (9) DVT prophylaxis: Status: Acute Assessment and plan: -LMWH (10) Diarrhea: Status: Acute Assessment and plan: -c. diff toxin assay ordered if this continues. legionella pending. Qualifiers: Diarrhea type: presumed infectious Qualified Code(s): R19.7 - Diarrhea, unspecified (11) Dyslipidemia: Status: Acute Assessment and plan: -a/w metabolic syndrome, address as outpatient. Subjective Subjective Interval history since last seen: Patient states that he is feeling much better as compared to when he was first admitted. He understands that we are treating his pneumonia with antibiotics and working on controlling his HR. Otherwise he has no other complaints or concerns at this time. Exam Narrative Exam Narrative: well appearing gentleman laying in bed in no acute, distress, AOx4, heart irregularly irregular, rate ~100bpm, lungs with course breath sounds in RLL, abdomen soft, non-tender, non-distended Objective Last Vital Signs Temp 98.2 F 06/13/24 07:00 Pulse 102 H 06/13/24 07:00 Resp 20 06/13/24 07:00 BP 128/94 H 06/13/24 07:00 Pulse Ox 94 06/13/24 07:00 Laboratory Results - last 24 hr 06/12/24 06/13/24 13:45 05:42 WBC 15.48 H RBC 4.22 L Hgb 13.4 L Hct 39.6 L MCV 94 MCH 31.8 MCHC 33.8 RDW 13.1 Plt Count 195 MPV 11.1 H Immature Gran % 1.2 Neutrophils % 88.1 Lymphocytes % 5.2 Monocytes % 5.3 Eosinophils % 0.0 Basophils % 0.2 Nucleated RBC % 0.2 Absolute Neutrophils 13.64 H Absolute Lymphocytes 0.80 L Absolute Monocytes 0.82 H Absolute Eosinophils 0.00 Absolute Basophils 0.03 Sodium 134 L Potassium 3.8 Chloride 99 Carbon Dioxide 25.4 Anion Gap 9.6 BUN 21 H Creatinine 1.0 Est GFR (CKD-EPI 2020) 91.69 Glucose 157 H Calcium 8.4 L MRSA (TEM-PCR) Negative PAWSS Have you Been Recently Intoxicated or Drunk Within the Last 30 days?: No Have you Ever Experienced Previous Episodes of Alcohol Withdrawal?: No Have you ever Experienced Withdrawal Seizures?: No Have you ever Experienced Delirium Tremens(DT)s?: No Have you ever undergone Alcohol Rehabilitation Treatment (i.e, inpt ot outpatient treatment programs)?: No Have you ever Experienced Blackouts?: No Have you ever Combined Alcohol with other Downers within the last 90 days?: No Have you ever Combined Alcohol with any other Substance of Abuse during the last 90 days?: No Positive Blood Alcohol level on Presentation? [PCS.BAL]: No Evidence of Increased Autonomic Activity (i.e. HR>120, tremor, sweating, agitation, nausea)?: No Result: 0 Time Spent with Patient Time Spent with Patient: >50 minutes Time was spent: preparing to see the patient(eg.review tests), obtaining and/or reviewing separately otained hiistory, ordering medications,tests, procedures, referring, communicating with other health critical care physician assistant, indepentently interpreting results, counseling the patient and care coordination
--- NOTE | 2024-06-13 09:51 | PDOC.CMPRO ---
Date of service: 06/13/24 Time of Service: 09:52 Care Management Progress Note Progress Note Text Progress Note Text: Calvin was eating lunch when CM met with him. He continues to be closely monitored and treated with IV ABX in the ICU. Cultures are pending. Per MD, pt may be ready for discharge tomorrow on a course of PO abx and PO diltiazem. Medicaid coverage is unlikely to be determined before he discharges, [facility] is currently waiting for Adina to bring in their tax info and paystubs. [facility] may be able to offer him one time assistance with RX's, if needed. CM will continue to follow. Discharge Potential Discharge Needs: PCP F/U Appt (Tdoc follow up) Anticipated Barriers to Discharge: None Identified Patient/Family Education Needs: Review discharge instructions, discuss Ask Me Three Transportation: Private vehicle Plan: Calvin continues to require close monitoring and treatment of CAP in the ICU. Anticipate, Calvin will discharge home via private vehicle with family when Medically cleared by provider. Pt will follow up with discharge plan of care and community providers, as recommended. In the absence of an established PCP, hospital follow up with be scheduled using the T-doc schedule. SDOH(Care Management) Screening Will the Patient Participate in the Screening?: Yes Do you worry about having a steady place to live?: no Problems where you live: no known problems In the past 12 months, have you had to go without electric, gas, oil or water in your home?: no Have you or anyone in your house had to go without enough food to eat?: no Has lack of transportation kept you from medical appointments or from doing things needed for daily living?: no Has anyone in your support network made you feel unsafe for any reason?: no
[2024-06-13] MEDS: levoFLOXacin 750 MG/150 ML BAG 150 MG IVPB (11:49)
[2024-06-13 12:01] LABS: Legionella Ag Detection Urine Positive (Negative)
--- NOTE | 2024-06-13 14:24 | CHAPLAIN ---
Calvin was resting in bed when I visited. He was pleasant and engaged in a conversation. He said he's in touch with family and he has both a personal and work phone here with him. I explained my role and offered support.
[2024-06-13] MEDS: Enoxaparin 40 MG/0.4 ML SYR SC (15:56)
--- NOTE | 2024-06-13 16:05 | NUR.NOTE ---
Nursing Note: Call from Kenn hayden nurse with the [facility] requesting to speak with patient in regards to his Legionella diagnosis. Patient agreed to take call. Call transferred to patient room.
[2024-06-13 23:05] LABS: Streptococcus Pneumoniae Ag, U Negative (Negative)
[2024-06-14] VITALS (28 sets, daily range): BP systolic 106–133; BP diastolic 66–101; PULSE 67–112; RESP 13–28; TEMP 36.3–37.2; O2SAT 91–97
[2024-06-14] MEDS: methylPREDNISolone SUCC 40 MG VIAL 80 MG IVP (00:02)
[2024-06-14] MEDS: Normal Saline Flush 10 ML SYR IVP ×3 (00:02→20:11)
[2024-06-14 06:57] LABS: HCT 41.9 % (40.0-50.0); HGB 14.2 g/dL (13.5-17.5); MCH 32.1 pg (27.0-33.0); MCHC 33.9 % (32.0-36.0); MCV 95 fL (80-95); MPV 10.9 fL (8.0-11.0); Platelet Count 230 10^3/uL (130-400); RBC 4.42 10^6/uL (4.36-5.78); RDW 13.1 % (11.8-14.1); RDW-SD 46.2 fL; WBC 13.31 10^3/uL (4.4-10.8)
[2024-06-14 07:11] LABS: Anion Gap 8.6 mmol/L (3-11); BUN 22 mg/dL (7-18); CO2 28.4 mmol/L (21.0-32.0); CREATININE 0.9 mg/dL (0.70-1.30); Calcium 8.6 mg/dL (8.5-10.1); Chloride 100 mmol/L (98-107); Estimated GFR 104.05 (mL/min/1.73m2); Glucose 160 mg/dL (74-106); Potassium 4.1 mmol/L (3.5-5.1); Sodium 137 mmol/L (136-145)
[2024-06-14] MEDS: dilTIAZem 30 MG TAB 120 MG PO ×3 (08:42→20:10)
--- NOTE | 2024-06-14 09:14 | CMPROGNOTE_ITS ---
Date of service: 06/14/24 Time of Service: 09:14 Care Management Progress Note Progress Note Text Progress Note Text: Ez was sitting up in bed visiting with his partner Adina when CM met with him. They had questions about establishing with a new PCP, which CM was able to answer. He will be scheduled for an appointment at [facility] upon discharge. CM provided the contact information for the practice in case he gets discharged over the weekend. In that event he would need to reach out to the office on Monday. Sunita from [facility] is also working on a Medicaid application and arrangements have been made to provide him with medication from the hospital pharmacy should he discharge in the weekend. Discharge Potential Discharge Needs: PCP F/U Appt (will need T-doc appointment) Anticipated Barriers to Discharge: None Identified Patient/Family Education Needs: Review discharge instructions, discuss Ask Me Three Transportation: Private vehicle Plan: Anticipate, Calvin will discharge home via private vehicle with family when medically cleared by provider. Pt will follow up with discharge plan of care and community providers, as recommended. In the absence of an established PCP, hospital follow up with be scheduled using the T-doc schedule. SDOH(Care Management) Screening Will the Patient Participate in the Screening?: Yes Do you worry about having a steady place to live?: no Problems where you live: no known problems In the past 12 months, have you had to go without electric, gas, oil or water in your home?: no Have you or anyone in your house had to go without enough food to eat?: no Has lack of transportation kept you from medical appointments or from doing things needed for daily living?: no Has anyone in your support network made you feel unsafe for any reason?: no
--- NOTE | 2024-06-14 10:58 | W.PM.PROGNOT ---
Date of Service Date of service: 06/14/24 Time of Service: 10:58 Assessment and Plan Assessment and plan (1) Severe sepsis: Status: Acute Assessment and plan: -Meets severe sepsis criteria with elevated WBC, tachycardia/tachypnea, fever, CHANCE. -Started on levofloxacin given PCN allergy. Vancomycin added x 1, MRSA PCR ordered but not done yet, d/w nursing -legionella positive, will continue Levaquin -He has wheezing, at risk for COPD. Added steroid and levalbuterol given atrial fibrillation. -Appreciate input from Dr. Orta; patient will need f/u CT to confirm this is not post-obstructive pneumonia as he is at risk for lung cancer. (2) Community acquired bacterial pneumonia: Status: Acute Assessment and plan: -as noted above (3) Atrial fibrillation with rapid ventricular response: Status: Acute Assessment and plan: -Possibly triggered by respiratory infection, but may have been chronic. -Troponins and EKG not c/w ischema. Alcohol and BMI also risk factors. TSH okay. -A1c not c/w DM, he may have HTN but need to further assess to assign [id number] score -had been on diltiazem drip and 60mg PO TID -dilt drip discontinued, PO dilt increased to 90mg PO TID as of AM 05/21, up to 120mg on AM 06/14 (4) Alcohol use: Status: Acute Assessment and plan: -preious physician discussed at-risk use, risk for pneumonia and Afib among other things. -No signs of withdrawal at this point. (5) Hyperglycemia: Status: Acute Assessment and plan: -A1c c/w pre-DM, no severe hyperglycemia despite steroids. (6) Acute kidney injury: Status: Acute Assessment and plan: -Cr normalized to previous baseline in 2022 with hydration. (7) Smoker: Status: Acute Assessment and plan: -Discussed cessation, declines NRT for now (8) Hyponatremia: Status: Acute Assessment and plan: -a/w hypovolemic state and lung infection, improved with fluids (9) DVT prophylaxis: Status: Acute Assessment and plan: -LMWH (10) Diarrhea: Status: Acute Assessment and plan: -c. diff toxin assay ordered if this continues. legionella pending. Qualifiers: Diarrhea type: presumed infectious Qualified Code(s): R19.7 - Diarrhea, unspecified (11) Dyslipidemia: Status: Acute Assessment and plan: -a/w metabolic syndrome, address as outpatient. Subjective Subjective Interval history since last seen: Patient states that he is feeling better as compared to yesterday. He understands that we are continuing to work on his HR medication regimen prior to discharge. Exam Narrative Exam Narrative: well appearing gentleman laying in bed in no acute, distress, AOx4, heart irregularly irregular, rate ~100bpm, lungs with course breath sounds in RLL, abdomen soft, non-tender, non-distended Objective Last Vital Signs Temp 97.9 F 06/14/24 07:16 Pulse 95 H 06/14/24 09:41 Resp 15 06/14/24 09:41 BP 122/91 H 06/14/24 09:41 Pulse Ox 94 06/14/24 08:07 Laboratory Results - last 24 hr 06/11/24 06/14/24 17:50 05:18 WBC 13.31 H RBC 4.42 Hgb 14.2 Hct 41.9 MCV 95 MCH 32.1 MCHC 33.9 RDW 13.1 Plt Count 230 MPV 10.9 Sodium 137 Potassium 4.1 Chloride 100 Carbon Dioxide 28.4 Anion Gap 8.6 BUN 22 H Creatinine 0.9 Est GFR (CKD-EPI 2020) 104.05 Glucose 160 H Calcium 8.6 Urine Legionella Ag Positive A Ur Strep pneumoniae Ag Negative PAWSS Have you Been Recently Intoxicated or Drunk Within the Last 30 days?: No Have you Ever Experienced Previous Episodes of Alcohol Withdrawal?: No Have you ever Experienced Withdrawal Seizures?: No Have you ever Experienced Delirium Tremens(DT)s?: No Have you ever undergone Alcohol Rehabilitation Treatment (i.e, inpt ot outpatient treatment programs)?: No Have you ever Experienced Blackouts?: No Have you ever Combined Alcohol with other Downers within the last 90 days?: No Have you ever Combined Alcohol with any other Substance of Abuse during the last 90 days?: No Positive Blood Alcohol level on Presentation? [PCS.BAL]: No Evidence of Increased Autonomic Activity (i.e. HR>120, tremor, sweating, agitation, nausea)?: No Result: 0 Time Spent with Patient Time Spent with Patient: >50 minutes Time was spent: preparing to see the patient(eg.review tests), obtaining and/or reviewing separately otained hiistory, ordering medications,tests, procedures, referring, communicating with other health group care worker, indepentently interpreting results, counseling the patient and care coordination
[2024-06-14] MEDS: levoFLOXacin 750 MG/150 ML BAG 100 MG IVPB (12:01)
[2024-06-14] MEDS: Enoxaparin 40 MG/0.4 ML SYR SC (16:09)
[2024-06-15] VITALS (11 sets, daily range): BP systolic 101–126; BP diastolic 76–87; PULSE 49–96; RESP 19–25; TEMP 36.8–37; O2SAT 95
[2024-06-15 06:01] LABS: HCT 42.8 % (40.0-50.0); HGB 14.2 g/dL (13.5-17.5); MCH 31.5 pg (27.0-33.0); MCHC 33.2 % (32.0-36.0); MCV 95 fL (80-95); MPV 10.8 fL (8.0-11.0); Platelet Count 310 10^3/uL (130-400); RBC 4.51 10^6/uL (4.36-5.78); RDW 13.2 % (11.8-14.1); RDW-SD 46.5 fL; WBC 16.18 10^3/uL (4.4-10.8)
[2024-06-15 06:13] LABS: Anion Gap 6.1 mmol/L (3-11); BUN 23 mg/dL (7-18); CO2 29.9 mmol/L (21.0-32.0); Calcium 8.6 mg/dL (8.5-10.1); Chloride 102 mmol/L (98-107); Estimated GFR 91.69 (mL/min/1.73m2); Glucose 137 mg/dL (74-106); Potassium 4.4 mmol/L (3.5-5.1); Sodium 138 mmol/L (136-145)
[2024-06-15] MEDS: dilTIAZem 30 MG TAB 90 MG PO (07:39)
[2024-06-15] MEDS: Normal Saline Flush 10 ML SYR IVP (07:40)
--- NOTE | 2024-06-15 09:37 | W.PM.DS.N ---
Date of service: 06/15/24 Time of Service: 09:37 DS: Diagnosis Discharge Diagnosis (1) Severe sepsis: Status: Acute (2) Community acquired bacterial pneumonia: Status: Acute (3) Atrial fibrillation with rapid ventricular response: Status: Acute (4) Alcohol use: Status: Acute (5) Hyperglycemia: Status: Acute (6) Acute kidney injury: Status: Acute (7) Smoker: Status: Acute (8) Hyponatremia: Status: Acute (9) Diarrhea: Status: Acute Discharge Plan Disposition Patient Disposition: Home Condition: Good Discharge Details Reason For Visit: Pneumonia, Atrial Fibrillation with RVR,CHANCE Admit Date/Time: 06/11/24 12:44 Admit Provider: Arthur Teresa Attending Provider: Arthur Teresa Primary Care Provider: None,None Hospital Course Hospital Course: Patient initially presented with signs and symptoms consistent with severe sepsis and community-acquired pneumonia that was ultimately determined to be secondary to Legionella. He was started on Levaquin and was continued during hospitalization and will have p.o. regimen ordered at discharge. Additionally, patient was found to be in A-fib RVR and required titration of initially IV diltiazem which was transitioned to p.o. regimen of diltiazem 90 mg 3 times daily which resulted in improved rate control. Additionally, patient was started on Lovenox during hospitalization but will require Eliquis given his new diagnosis of A-fib. Given the patient resolution of symptoms, feeling significantly better, and having rate control was determined that he was stable for discharge home. Home Meds and New Rx's Prescriptions: New diltiazem HCl [Cardizem] 30 mg Tablet 90 mg PO TID Qty: 160 0RF levofloxacin 750 mg tablet 750 mg PO DAILY Qty: 5 0RF Eliquis 5 mg tablet 5 mg PO BID Qty: 90 0RF Discharge Instructions Activity:: Activity as Tolerated Equipment/Supplies:: No Equipment Needed Diet:: As Tolerated Discharge Orders Discharge Orders: Discharge Order (Routine); Ordered 06/15/24 Ordered By: Alonzo Grossman DS: Summary Time Spent with Patient providing and/or coordinating discharge services: Greater than 30 minutes Status at Discharge Functional status at discharge: independent ambulation Overall status at discharge: patient is back to baseline Mental Status: mental status grossly normal Speech and Movement: speech and movement normal Mood: congruent mood Affect: normal affect Quality:SDOH Health Related Social Needs: No Data to Display Exam Narrative Exam Narrative: well appearing gentleman laying in bed in no acute, distress, AOx4, heart irregularly irregular, rate ~80bpm, lungs with course breath sounds in RLL, abdomen soft, non-tender, non-distended Psych Mental Status: mental status grossly normal Speech and Movement: speech and movement normal Mood: congruent mood Affect: normal affect DS: Data Vitals/I&O Vitals and I&O: Vital Signs Temperature 98.2 F 06/15/24 08:09 Temperature Source Temporal Artery Scan 06/15/24 04:00 Pulse 96 H 06/15/24 08:09 Pulse 67 06/15/24 06:00 Respiratory Rate 19 06/15/24 06:00 Respiratory Effort Normal, Non-Labored 06/15/24 08:09 Respiratory Depth Normal 06/15/24 08:09 Respiratory Pattern Normal 06/15/24 08:09 Blood Pressure 125/78 06/15/24 04:05 Blood Pressure Mean 94 06/15/24 04:05 Blood Pressure Position Supine 06/15/24 08:09 Pulse Oximetry 95 06/15/24 08:09 Oxygen Delivery Method Room Air 06/15/24 08:09 Oxygen Flow Rate 0 06/15/24 08:09 Pain Level 0 06/15/24 08:09 Intake & Output 06/14/24 06/15/24 06/15/24 17:59 05:59 17:59 Intake Total 2129 / 2129 870 / 3000 Output Total 1939 1750 / 3690 Balance 190 / 190 -880 / -690 Intake: IV 170 / 170 20 / 190 Oral 1959 / 1960 850 / 2810 Output: Urine 1939 1750 / 3690 Other: Urine Color Pale Light Shante Yellow Urine Appearance Clear Clear Urine Odor Normal Normal Comment No void at this assesment. Voiding Methods Urinal Urinal Data Completed and Pending Labs on day of discharge: Labs from last 24 hours 06/15/24 05:26 WBC 16.18 H RBC 4.51 Hgb 14.2 Hct 42.8 MCV 95 MCH 31.5 MCHC 33.2 RDW 13.2 Plt Count 310 MPV 10.8 Sodium 138 Potassium 4.4 Chloride 102 Carbon Dioxide 29.9 Anion Gap 6.1 BUN 23 H Creatinine 1.0 Est GFR (CKD-EPI 2020) 91.69 Glucose 137 H Calcium 8.6 Preliminary micro results at discharge 06/11/24 11:30 Blood Culture - Preliminary Blood NO GROWTH 72 HOURS 06/11/24 11:30 Blood Culture - Preliminary Blood NO GROWTH 72 HOURS PFSH All Active Problems Severe sepsis (Acute) Dyslipidemia (Acute) Snoring (Acute) Diarrhea (Acute) ALYSSA (obstructive sleep apnea) (Chronic) Sepsis (Acute) Hyponatremia (Acute) DVT prophylaxis (Acute) Acute kidney injury (Acute) Hyperglycemia (Acute) Alcohol use (Acute) Atrial fibrillation with rapid ventricular response (Acute) Community acquired bacterial pneumonia (Acute) Smoker (Acute) Medical History COVID-19 Family History Uncle Diabetes Father Heart disease Mother Diabetes cardiomyopathy Social History Smoking/Tobacco Use Status: Current every day Tobacco Type: cigarettes Smoking risk assessment performed?: Yes Alcohol Intake: current Alcohol Intake frequency: 3 or more drinks per day Alcohol type: beer Counseling given: Yes Counseling provided: provider counseling and reduce to 2 or less/day Substance use type: does not use Housing: house Additional Social history: Lives with mother, superintendent marine oil terminal GF Arline, her son in [place]. Works at [employer] in [place], [facility] [place] from [place] in 2000 Time Spent with Patient Time Spent with Patient: <45 minutes Time was spent: preparing to see the patient(eg.review tests), obtaining and/or reviewing separately otained hiistory, ordering medications,tests, procedures, referring, communicating with other health lead caregiver, indepentently interpreting results, counseling the patient and care coordination
--- NOTE | 2024-06-15 17:33 | PDOC.CMDIS ---
Date of service: 06/15/24 Time of Service: 17:33 LACE Index Scoring Tool Questions: Length of Stay (in days): 3 Was the patient admitted via the E.D.?: Yes E.D. Visits: 1 Answers: Total Score: 7 Risk of Readmission: Low Risk Care Management Discharge Plan Reason for Hospitalization: legionella Discharge Plan: Calvin will discharge home via private vehicle with family. He will follow up with discharge plan of care and community providers, as recommended. In the absence of an established PCP, hospital follow up with be scheduled using the T-doc schedule. As he discharged on a weekend, Ez was provided with contact information for the T-doc appointment (Kristin Nguyen) with instructions to call tomorrow. In addition he was give a 4 day supply of medications to bridge the gap until his Medicaid can be approved and /or [facility] can assist with the cost of his prescriptions. Patient/Family Education Needs: Review discharge instructions, activity, limitations, follow up plan and discuss Ask Me Three [facility] Health Related Social Needs: No Data to Display
== END 2024-06-15 11:48 | disposition home or self-care (01) | DRG 871 ==
LOC: ER 13:06 → ICU 14:22
PROVIDERS: Family Medicine; Registered Nurse Emergency; Admitting Provider Family Medicine; Emergency Provider Emergency Medicine; Visit Provider Family Medicine
DX: A48.1 Legionnaires' disease (principal); A41.89 Other specified sepsis; N17.9 Acute kidney failure, unspecified; A09 Infectious gastroenteritis and colitis, unspecified; E87.1 Hypo-osmolality and hyponatremia; R65.20 Severe sepsis without septic shock; I48.91 Unspecified atrial fibrillation; F17.210 Nicotine dependence, cigarettes, uncomplicated; G47.33 Obstructive sleep apnea (adult) (pediatric); R59.0 Localized enlarged lymph nodes; E66.9 Obesity, unspecified; R73.9 Hyperglycemia, unspecified; F10.90 Alcohol use, unspecified, uncomplicated; E78.5 Hyperlipidemia, unspecified; Z68.33 Body mass index [BMI] 33.0-33.9, adult
CPT/HCPCS: 00123; 36415; 71275; 80048; 80053; 80061; 82805; 84145; 85027; 87040; 87449; 87637; 87641; 93005; 96365; 96366; 96375; 99291; J1650; 71045; 81003; 81015; 83036; 83605; 83735; 84443; 84484; 85025; 85610; 85730; 87070; 87086; 87205; 87899; 93010; 93306; 94640; 99223; 99233; 99238; J0131; J1885; J1956; J2919; J3372; J3490; J7614

== ENCOUNTER 2024-06-21 02:22 | Outpatient (CLI) | payer MEDICAID, SELFPAY ==
--- OUTSIDE RECORDS SUMMARY | 2024-06-21 02:46 | XMS_ITS | Clinical Summary ---
Author Organization [facility] [place] [address] Care Team Providers Care Iap Displays Analyst Name Role Phone Unavailable Primary Care Provider Unavailabl e Encounters Date Type Department Care Team Description 06/12/2024 12:41 PM EDT - 06/12/2024 11:59 PM EDT Hospital Encounter Mobile Echocardiography [facility] [place] [address] Jose Paris MD Atrial fibrillation, unspecified type Discharge Disposition: Home from Last 3 Months Social History Tobacco Use Types Packs/Day Years Used Date Smoking Tobacco: Never Assessed Sex and Gender Information Value Date Recorded Sex Assigned at Not on file Gender Identity Not on file Sexual Orientation Not on file Plan of Treatment Health Maintenance Due Date Last Done Comments CT Colonography 1973 Colonoscopy 1973 Colorectal Cancer Screening 1973 FIT DNA 1973 FIT 1973 Sigmoidoscopy (10 year) with FIT yearly 1973 Sigmoidoscopy 1973 HIV screen 1991 Hepatitis C Screening 1991 Lipid Screening 1991 Hepatitis B vaccine (0-59 yrs) (1) 1992 Tdap adult 1992 Tetanus vaccine 1992 Covid-19 Vaccine ( - season) 2023 Zoster vaccine (1 of 2) 2023 Influenza (Flu) vaccine (1 o f 1 - Influenza standard series) 07/21/2024 Procedures Procedure Name Priority Date/Time Associated Diagnosis Comments ECHO COMPLETE Routine 06/12/2024 1:04 PM EDT Atrial fibrillation, unspecified type from Last 3 Months Results * ECHO COMPLETE (06/12/2024 1:04 PM EDT) Anatomical Region Laterality Modality Other 06/12/2024 9:42 AM EDT Narrative 06/12/2024 1:[address] [place] [address] ? Echocardiogram Report Name: CALVIN CARRASCO ? Study Date: 06/12/2024 09:42 AMBP: 120/100 mmHg ? [facility] 1975 [facility] Account: [id number] Age: 48 yrs Gender: Male Ordering Physician: JOSE PARIS Referring Physician: JOSE PARIS Reason For Study: New Afib, fever, SOB, palpitations, smoker Exam Location: [facility]. Interpretation Summary Normal left ventricle size with low-normal LV systolic function. LV ejection fraction is estimated visually at 50-55% with beat to beat variability. No regional wall motion abnormalities. Normal right ventricle. Aortic sclerosis without stenosis. Mild to moderate mitral regurgitation. No comparison study is available. Procedure Complete-[id number]. Suboptimal quality. This study is limited because of body habitus. This study is limited because the patient was unable to turn. There is normal sinus rhythm. Left Ventricle Left ventricle is of normal size. Wall thickness is normal. Left ventricular systolic function is low-normal. Left ventricular ejection fraction is estimated visually at 50-55% with beat to beat variability. There are no segmental wall motion abnormalities. Right Ventricle The right ventricle is of normal size. Right ventricular systolic function is normal. Left Atrium The left atrium is mildly dilated. No abnormality of the interatrial septum is identified. Right Atrium The right atrium is mildly dilated. Aortic Valve The aortic valve is tricuspid. The right coronary cusp of the aortic valve is mildly thickened. There is no aortic stenosis. The peak instantaneous gradient across the aortic valve is 5.7 mmHg. The mean gradient across the aortic valve is 3.4 mmHg. The aortic valve area calculated using the continuity equation is 2.5 cm^2. There is no aortic regurgitation. Mitral Valve The mitral valve is structurally normal. There is no mitral stenosis. There is mild to moderate mitral regurgitation. Tricuspid Valve The tricuspid valve is structurally and functionally normal. There is mild tricuspid regurgitation. Pulmonic Valve The pulmonic valve appears to be structurally normal. There is mild pulmonic valve regurgitation. Great Arteries The diameter at the level of the sinuses of Valsalva is 3.0 cm. The maximum diameter of the proximal ascending aorta is 3.1 cm. Venous Inferior vena cava is normal in size. Inferior vena cava collapse greater than 50% with respiration. Pericardium/Pleural There is no pericardial effusion. Hemodynamics The peak right ventricular systolic pressure is 29.3 mmHg . The estimated right atrial pressure is 3mmHg. Left ventricular diastolic function is indeterminate. ? 2D Measurements ? Volumes ?IVSd: 1.1 cm ? LA Volume Index: ?LVIDd: 5.2 cm ?37.7 ml/m2 ?LVIDs: 4.0 cm ?SV(LVOT): 52.9 ml ?LVPWd: 1.1 cm ?LV Stroke Volume: 52.9 ml ?RWT: 0.43 {ratio} ?LV mass(C)d: 214.3 grams ?Ao root diam: 3.0 cm ?asc Aorta Diam: 3.1 cm ?LVOT diam: 2.0 cm ?TAPSE_phl: 2.1 cm Doppler LV V1 VTI: 16.4 cm LVOT max Velocity: 101.3 cm/sec Ao V2 VTI: 21.0 cm Ao Max: 118.2 cm/sec Ao valve max: 5.7 mmHg Ao valve mean: 3.4 mmHg MV E max chalo: 98.6 cm/sec MV dec time: 0.17 sec MV mean P.0 mmHg Lat Peak E' Chalo: 14.9 cm/sec E/e' (lat): 6.6 Med Peak E' Chalo: 10.3 cm/sec E/e' (med): 9.6 E/e' Average: 8.1 AIME(I,D): 2.5 cm2 Dimensionless index Aov: 0.78 TR max chalo: 254.8 cm/sec RVSP(TR): 29.3 mmHg I ?WMSI = 1.00 ? % Normal = 100 ?Segments ??Size X - Cannot ?2 - ?4 - ?1-2 ? small Interpret ?1 - Normal ?? Hypokinetic 3 - Akinetic Dyskinetic ?? 3-5 ? moderate 5 - ? 6-14 ?large Aneurysmal ?15-16 ?? diffuse Procedure Note Jose Camarillo MD - 06/12/2024 1 [place] [address] Echocardiogram Report Name: CALVIN CARRASCO Study Date:06/12/2024 09:42 AMBP: 120/100 mmHg Patient Location: : 1975 Account: [id number] Age: 48 yrs Gender: Male Ordering Physician: JOSE PARIS Referring Physician: JOSE PARIS Reason For Study: New Afib, fever, SOB, palpitations, smoker Exam Location: [facility]. Interpretation Summary Normal left ventricle size with low-normal LV systolic function. LVejection fraction is estimated visually at 50-55% with beat to beat variability.No regional wall motion abnormalities. Normal right ventricle. Aortic sclerosis without stenosis. Mild to moderate mitral regurgitation. No comparison study is available. Procedure Complete-[id number]. Suboptimal quality. This study is limited because of bodyhabitus. This study is limited because the patient was unable to turn. There isnormal sinus rhythm. Left Ventricle Left ventricle is of normal size. Wall thickness is normal. Leftventricular systolic function is low-normal. Left ventricular ejection fraction isestimated visually at 50-55% with beat to beat variability. There are no segmentalwall motion abnormalities. Right Ventricle The right ventricle is of normal size. Right ventricular systolic functionis normal. Left Atrium The left atrium is mildly dilated. No abnormality of the interatrialseptum is identified. Right Atrium The right atrium is mildly dilated. Aortic Valve The aortic valve is tricuspid. The right coronary cusp of the aortic valveis mildly thickened. There is no aortic stenosis. The peak instantaneousgradient across the aortic valve is 5.7 mmHg. The mean gradient across the aorticvalve is 3.4 mmHg. The aortic valve area calculated using the continuity equationis 2.5 cm^2. There is no aortic regurgitation. Mitral Valve The mitral valve is structurally normal. There is no mitral stenosis.There is mild to moderate mitral regurgitation. Tricuspid Valve The tricuspid valve is structurally and functionally normal. There ismild tricuspid regurgitation. Pulmonic Valve The pulmonic valve appears to be structurally normal. There is mildpulmonic valve regurgitation. Great Arteries The diameter at the level of the sinuses of Valsalva is 3.0 cm. Themaximum diameter of the proximal ascending aorta is 3.1 cm. Venous Inferior vena cava is normal in size. Inferior vena cava collapse greaterthan 50% with respiration. Pericardium/Pleural There is no pericardial effusion. Hemodynamics The peak right ventricular systolic pressure is 29.3 mmHg . The estimatedright atrial pressure is 3mmHg. Left ventricular diastolic function isindeterminate. 2D Measurements Volumes IVSd: 1.1 cm LA VolumeIndex: LVIDd: 5.2 cm 37.7 ml/m2 LVIDs: 4.0 cm SV(LVOT): 52.9ml LVPWd: 1.1 cm LV Stroke Volume:52.9 ml RWT: 0.43 {ratio} LV mass(C)d: 214.3 grams Ao root diam: 3.0 cm asc Aorta Diam: 3.1 cm LVOT diam: 2.0 cm TAPSE_phl: 2.1 cm Doppler LV V1 VTI: 16.4 cm LVOT max Velocity: 101.3 cm/sec Ao V2 VTI: 21.0 cm Ao Max: 118.2 cm/sec Ao valve max: 5.7 mmHg Ao valve mean: 3.4 mmHg MV E max chalo: 98.6 cm/sec MV dec time: 0.17 sec MV mean P.0 mmHg Lat Peak E' Chalo: 14.9 cm/sec E/e' (lat): 6.6 Med Peak E' Chalo: 10.3 cm/sec E/e' (med): 9.6 E/e' Average: 8.1 AIME(I,D): 2.5 cm2 Dimensionless index Aov: 0.78 TR max chalo: 254.8 cm/sec RVSP(TR): 29.3 mmHg I WMSI = 1.00 % Normal = 100 SegmentsSize X - Cannot 2 - 4 - 1-2small Interpret 1 - Normal Hypokinetic 3 - Akinetic Dyskinetic 3-5moderate 5 - 6-14large Aneurysmal 15-16diffuse Jose Paris MD ECHO ORDERABLES from Last 3 Months
--- OUTSIDE RECORDS SUMMARY | 2024-06-21 02:46 | XMS_ITS | Encounter Summary ---
Author Organization [facility] [place] [address] Care Team Providers Care Manager Poker Name Role Phone Unavailable Primary Care Provider Unavailabl e Reason for Referral * Diagnostic Test (Routine) - Pending Review Specialty Diagnoses / Procedures Referred By Contac t Referred To Contact Cardiology Diagnoses Atrial fibrillation, unspecified type Procedures Mobile Echo Jose Paris MD [address] [place] [address] [place] [address] [facility] [place] [address] Referral ID Status Reason Start Date Expiration Date Visits Requested Visits Authorized [id number] Pending Review Specialty Service Requested 06/12/2024 06/12/2025 1 1 Reason for Visit * Diagnostic Test (Routine) - Pending Review Specialty Diagnoses / Procedures Referred By Contac t Referred To Contact Cardiology Diagnoses Atrial fibrillation, unspecified type Procedures Mobile Echo Jose Paris MD [address] [place] [address] [place] [address] [facility] [place] [address] Referral ID Status Reason Start Date Expiration Date Visits Requested Visits Authorized [id number] Pending Review Specialty Service Requested 06/12/2024 06/12/2025 1 1 Encounter Details Date Type Department Care Team (Latest Contact Info) Description 06/12/2024 12:41 PM EDT - 06/12/2024 11:59 PM EDT Hospital Encounter Mobile [place] [address] Jose Paris MD [address] [place] [address] [place] [address] Atrial fibrillation, unspecified type Discharge Disposition: Home Social History Tobacco Use Types Packs/Day Years Used Date Smoking Tobacco: Never Assessed Sex and Gender Information Value Date Recorded Sex Assigned at Not on file Gender Identity Not on file Sexual Orientation Not on file documented as of this encounter Plan of Treatment Not on file documented as of this encounter Procedures Procedure Name Priority Date/Time Associated Diagnosis Comments ECHO COMPLETE Routine 06/12/2024 1:04 PM EDT Atrial fibrillation, unspecified type documented in this encounter Results * ECHO COMPLETE (06/12/2024 1:04 PM EDT) Anatomical Region Laterality Modality Other 06/12/2024 9:42 AM EDT Narrative 06/12/2024 1:22 PM EDT [address] [place] [address] ? Echocardiogram Report Name: CALVIN CARRASCO ? Study Date: 06/12/2024 09:42 AMBP: 120/100 mmHg ? Patient Location: 4A : 1975 ? Account: [id number] Age: 48 yrs Gender: Male Ordering Physician: JOSE PARIS Referring Physician: JOSE PARIS Reason For Study: New Afib, fever, SOB, palpitations, smoker Exam Location: [facility]. Interpretation Summary Normal left ventricle size with low-normal LV systolic function. LV ejection fraction is estimated visually at 50-55% with beat to beat variability. No regional wall motion abnormalities. Normal right ventricle. Aortic sclerosis without stenosis. Mild to moderate mitral regurgitation. No comparison study is available. Procedure Complete-[id number]. Suboptimal quality. This study is limited because [...] Note Jose Camarillo MD - 06/12/2024 [address] [place] [address] Echocardiogram Report Name: CALVIN CARRASCO Study Date:06/12/2024 09:42 AMBP: 120/100 mmHg Patient Location: : 1975 Account: [id number] Age: 48 yrs Gender: Male Ordering Physician: JOSE PARIS Referring Physician: JOSE PARIS Reason For Study: New Afib, fever, SOB, palpitations, smoker Exam Location: [facility]. Interpretation Summary Normal left ventricle size with low-normal LV systolic function. LVejection fraction is estimated visually at 50-55% with beat to beat variability.No regional wall motion abnormalities. Normal right ventricle. Aortic sclerosis without stenosis. Mild to moderate mitral regurgitation. No comparison study is available. Procedure Complete-[id number]. Suboptimal quality. This study is limited because [...] Aneurysmal 15-16diffuse Jose Paris MD ECHO ORDERABLES documented in this encounter Visit Diagnoses Diagnosis Atrial fibrillation, unspecified type documented in this encounter
--- OUTSIDE RECORDS SUMMARY | 2024-06-21 02:46 | XMS_ITS | Encounter Summary ---
Author Organization [facility] Address [address] [place] [address] Care Team Providers Care Ballistics Tester Name Role Phone Unavailable Primary Care Provider Unavailabl e Encounter Details Date Type Department Care Team (Late st Contact Info) Description 06/12/2024 Lab Requisition [facility] Pathology & Laboratory Medicine - [facility] [address], [place] [id number] Outr Resulting Lab, Provider Social History Tobacco Use Types Packs/Day Years Used Date Smoking Tobacco: Never Assessed Sex and Gender Information Value Date Recorded Sex Assigned at Not on file Gender Identity Not on file Sexual Orientation Not on file documented as of this encounter Plan of Treatment Not on file documented as of this encounter Procedures Procedure Name Priority Date/Time Associated Diagnosis Comments LEGIONELLA ANTIGEN DETECTION, URINE Routine 06/11/2024 17:50 EDT documented in this encounter Results * (ABNORMAL) LEGIONELLA ANTIGEN DETECTION, URINE (06/11/2024 17:50 EDT) Legionella Antigen Detection Positive( A) Negative 06/12/2024 23:20 EDT [facility] Urine URINE / Unknown 06/11/2024 1 7:50 EDT 06/12/2024 17:22 EDT Provider Outr Resulting Lab MICROBIOLOGY - GENERAL ORDERABLES [facility] [address], [place] [id number] documented in this encounter Visit Diagnoses Not on filedocumented in this encounter
--- OUTSIDE RECORDS SUMMARY | 2024-06-21 02:46 | XMS_ITS | Referral Summary ---
Author Organization [facility] Address [address] [place] [address] Care Team Providers Care Plumbing And Heating Mechanic Name Role Phone Unavailable Primary Care Provider Unavailabl e Encounters Date Type Department Care Team Description 06/12/[address] [facility] Pathology & Laboratory Medicine - [facility] [address] [place] [address] Outr Resulting Lab, Provider from Last 3 Months Social History Tobacco Use Types Packs/Day Years Used Date Smoking Tobacco: Never Assessed Sex and Gender Information Value Date Recorded Sex Assigned at Not on file Gender Identity Not on file Sexual Orientation Not on file Plan of Treatment Not on file Procedures Procedure Name Priority Date/Time Associated Diagnosis Comments LEGIONELLA ANTIGEN DETECTION, URINE Routine 06/11/2024 17:50 EDT from Last 3 Months Results * (ABNORMAL) LEGIONELLA ANTIGEN DETECTION, URINE (06/11/2024 17:50 EDT) Legionella Antigen Detection Positive( A) Negative 06/12/2024 23:20 EDT [facility] Urine URINE / Unknown 06/11/2024 1 7:50 EDT 06/12/2024 17:22 EDT Provider Outr Resulting Lab MICROBIOLOGY - GENERAL ORDERABLES [facility] [address] [place], [place] [address] from Last 3 Months
--- OUTSIDE RECORDS SUMMARY | 2024-06-21 02:46 | XMS_ITS | Clinical Summary ---
Author Organization [facility] Address [address] [place] [address] Care Team Providers Care Housekeeping Manager Name Role Phone Unavailable Primary Care Provider Unavailabl e Encounters Date Type Department Care Team Description 06/12/2024 Lab Requisition [facility] Pathology & Laboratory Medicine - [facility] [address] [place] [address] Outr Resulting Lab, Provider from Last 3 Months Social History Tobacco Use Types Packs/Day Years Used Date Smoking Tobacco: Never Assessed Sex and Gender Information Value Date Recorded Sex Assigned at Not on file Gender Identity Not on file Sexual Orientation Not on file Plan of Treatment Health Maintenance Due Date Last Done Comments Hepatitis C Screen 1975 Hepatitis B Vaccine (1 of 3 - 19+ 3-dose series) 11/29 COVID-19 Vaccine ( season) 2023 Procedures Procedure Name Priority Date/Time Associated Diagnosis Comments LEGIONELLA ANTIGEN DETECTION, URINE Routine 06/11/2024 17:50 EDT from Last 3 Months Results * (ABNORMAL) LEGIONELLA ANTIGEN DETECTION, URINE (06/11/2024 17:50 EDT) Legionella Antigen Detection Positive( A) Negative 06/12/2024 23:20 EDT [facility] Urine URINE / Unknown 06/11/2024 1 7:50 EDT 06/12/2024 17:22 EDT Provider Outr Resulting Lab MICROBIOLOGY - GENERAL ORDERABLES [facility] [address] [place] [address] from Last 3 Months
[2024-06-21 14:20] LABS: HCT 51.9 % (40.0-50.0); HGB 17.1 g/dL (13.5-17.5); MCH 31.4 pg (27.0-33.0); MCHC 32.9 % (32.0-36.0); MCV 95 fL (80-95); MPV 8.9 fL (8.0-11.0); Platelet Count 405 10^3/uL (130-400); RBC 5.45 10^6/uL (4.36-5.78); RDW 13.2 % (11.8-14.1); RDW-SD 46.3 fL; WBC 12.19 10^3/uL (4.4-10.8)
[2024-06-21 14:36] LABS: Anion Gap 9.7 mmol/L (3-11); BUN 16 mg/dL (7-18); CO2 25.3 mmol/L (21.0-32.0); CREATININE 1.1 mg/dL (0.70-1.30); Calcium 9.1 mg/dL (8.5-10.1); Chloride 101 mmol/L (98-107); Estimated GFR 81.78 (mL/min/1.73m2); Glucose 133 mg/dL (74-106); Potassium 4.3 mmol/L (3.5-5.1); Sodium 136 mmol/L (136-145)
== END 2024-06-21 02:23 | disposition home or self-care (01) ==
LOC: LBO 02:22
PROVIDERS: PCP Nurse Practitioner Family; Visit Provider Nurse Practitioner Family
DX: J15.9 Unspecified bacterial pneumonia (principal); I48.91 Unspecified atrial fibrillation; Z78.9 Other specified health status; F17.200 Nicotine dependence, unspecified, uncomplicated
CPT/HCPCS: 36415; 80048; 85027

== ENCOUNTER 2024-07-18 05:26 | Outpatient (CLI) | payer MEDICAID, SELFPAY ==
[2024-07-18] MEDS: Levalbuterol HFA 15 GM INH 4 PUFF IH (15:58)
[2024-07-18] MEDS: Inhaler, Assist Device 1 EACH MC (15:58)
--- NOTE | 2024-07-31 20:21 | PFT_ITS ---
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 Interpretation Spirometry: Spirometry pre and postbronchodilator showed: 1. No evidence of airway obstruction. 2. No response to bronchodilator 3. Mildly decreased forced vital capacity (see lung volume studies below). 4. The alignment technician comments indicated a good patient effort. The volume-time curves and flow-volume loop appeared to meet the criteria for test acceptability and usability. Lung Volumes: Lung volume studies by plethysmography showed: 1. Mild restriction, suggested by total lung capacity of 78% predicted, residual volume of 76% predicted, thoracic gas volume of 70% predicted, and ERV of 62% predicted. The vital capacity was lower limit of normal at 80% predicted 2. No evidence of hyperinflation. Diffusion Capacity: Diffusing capacity by single breath carbon monoxide technique showed: 1. Mildly decreased gas exchange, which normalized when adjusted for lung volumes. Impression Mild restriction and gas exchange abnormality without significant airway obstruction. 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 Consider respiratory protection and recommend follow-up pulmonary function s tudies in 3 to 6 months to monitor trends.
== END 2024-07-18 05:27 | disposition home or self-care (01) ==
LOC: RT 05:26
PROVIDERS: PCP Nurse Practitioner Family; Visit Provider Internal Medicine Critical Care Medicine
DX: F17.210 Nicotine dependence, cigarettes, uncomplicated (principal); R06.09 Other forms of dyspnea; Z57.2 Occupational exposure to dust; J98.8 Other specified respiratory disorders
CPT/HCPCS: 00123; 94060; 94726; 94729

== ENCOUNTER 2024-07-26 07:59 | Outpatient (CLI) | payer MEDICAID, SELFPAY ==
--- NOTE | 2024-07-26 07:45 | RT.EKG_ITS ---
APPROVED REPORT Exam: Resting ECG Reason for Exam: afib Patient Location: O HR:97 bpm ECG Measurements Heart Rate 97 AXIS [place] [id number] P [id number] QRSd 88 QRS 36 QT 351 T 108 QTc 446 Conclusion Atrial fibrillation...V-rate 65-126, irreg A-activity Nonspecific T abnormalities, lateral leads...T <-0.10mV, I aVL V5 V6
== END 2024-07-26 08:00 | disposition home or self-care (01) ==
LOC: DI.CARD 07:59
PROVIDERS: PCP Nurse Practitioner Family; Visit Provider Internal Medicine Cardiovascular Disease
DX: I48.91 Unspecified atrial fibrillation (principal)
CPT/HCPCS: 93010

== ENCOUNTER 2024-08-01 02:06 | Outpatient (CLI) | payer MEDICAID, SELFPAY ==
--- NOTE | 2024-08-01 | DI.CT_ITS ---
Exam(s) CT CHEST W EXAM: CT CHEST W CLINICAL HISTORY: LUNG OPACITIES, MEDIASTINAL LYMPHADENOPATHY TECHNIQUE: Imaging Protocol: Axial computed tomography images with coronal and sagittal reformatted images were created and reviewed CONTRAST MATERIAL: Intravenous: Omnipaque 350 Contrast volume:70 ml. COMPARISON: CT CT CHEST PE CTA from 06/11/2024 CR XR PORTABLE CHEST AP from 06/11/2024 FINDINGS: Pulmonary parenchyma: Significant interval improvement in previously noted right lower lobe pneumonia . Some residual opacities remain present. No dominant measurable mass. Tracheobronchial tree: No bronchiectasis or mucous plugging. Mediastinum and Elina: Significant improvement of previously noted mediastinal and right hilar adenopa thy. Minimal residual right hilar adenopathy. Pleura: No effusion. No pneumothorax. Heart: The heart is mildly dilated. No coronary artery calcifications are seen. Aorta: Thoracic aorta non-dilated. Mild atherosclerotic changes. Pulmonary arteries: No gross evidence of emboli. Upper abdomen: No acute findings. Bones: Degenerative changes in the spine. Soft tissues: Unremarkable. IMPRESSION: Significant improvement previously noted right lower lobe pneumonia and adenopathy. Some residual pu lmonary infiltrates remain present. Further follow-up could be considered. RADIATION DOSE DELIVERED: 294.48mGy.cm Total DLP DATA REPOSITORY: All CT scans at this facility are submitted to the National Radiology Data Registry (NRDR) Dose Index Registry (DIR) with the [employer] (ACR). RADIATION OPTIMIZATION: All CT scans at this facility use at least one of these dose optimization te chniques: automated exposure control; mA and/or kV adjustment per patient size (includes targeted exa ms where dose is matched to clinical indication); or iterative reconstruction.
[2024-08-01] MEDS: Normal Saline - Diluent 50 ML VIAL IJ (14:50)
[2024-08-01] MEDS: Omnipaque 350 MG/ML 100 ML BTL IJ (14:59)
== END 2024-08-01 02:26 ==
LOC: DI 02:06
PROVIDERS: PCP Nurse Practitioner Family; Visit Provider Internal Medicine Critical Care Medicine
DX: R91.8 Other nonspecific abnormal finding of lung field (principal)
CPT/HCPCS: 71260; J3490

== ENCOUNTER 2024-08-05 06:04 | Day surgery (SDC) | payer MEDICAID, SELFPAY ==
[2024-08-05 06:30] VITALS: BP 138/98; PULSE 89; RESP 16; TEMP 36.5; O2SAT 97
--- NOTE | 2024-08-05 06:30 | RT.EKG_ITS ---
APPROVED REPORT Exam: Resting ECG Reason for Exam: pre cardiovesion. Patient Location: O HR:80 bpm ECG Measurements Heart Rate 80 AXIS CA [id number] P [id number] QRSd 92 QRS 38 QT 411 T 96 QTc 475 Conclusion Atrial fibrillation...V-rate 67- 99, irreg A-activity Otherwise normal ECG
[2024-08-05] MEDS: Lactated Ringers 1,000 ML 30 ML IV (06:50)
--- NOTE | 2024-08-05 07:08 | W.ANESPRE ---
General Info Date of Service Date Performed: 08/05/24 Height: 6 ft 3.2 in Weight: 115.3 kg Body Mass Index (BMI): 31.6 Surgical Procedure: Operation Date: 08/05/24 07:30 Proposed Procedure Side Surgeon p Cardioversion Maria Teresa Redd MD Meds Allergies and Home Medications Allergies Allergy/AdvReac Type Severity Reaction Status Date / Time Penicillins AdvReac Unknown from Verified 08/05/24 06:38 childhood,unable to recall Home Medication ?Medication ?Instructions ?Recorded diltiazem HCl 240 mg capsule,24 240 mg PO QAM #90 caps 06/17/24 hr,extended release amiodarone 200 mg tablet 200 mg PO BID #90 tabs 07/26/24 apixaban 5 mg tablet (Eliquis) 5 mg PO BID #180 tabs 07/26/24 Current Visit Medications: Current Medications Generic Name Dose Route Start Last Admin Trade Name Freq PRN Reason Stop Dose Admin Ringer's Solution 1,000 mls @ 30 mls/hr 08/05/24 06:45 08/05/24 06:50 IV 09/04/24 06:44 30 mls/hr INFUSION JENNIFER Administration IV Miscellaneous Supplies 1 each 08/05/24 06:45 Iv Access IV 09/04/24 06:44 DIRECTED JENNIFER Sodium Chloride 0 ml 08/05/24 06:37 Normal Saline Flush 10 Ml Syr IVP 09/04/24 06:36 PRN PRN Sodium Chloride 0 ml 08/05/24 08:30 Normal Saline Flush 10 Ml Syr IVP 09/04/24 08:29 BID JENNIFER Sodium Chloride 0 ml 08/05/24 06:37 Normal Saline 10 Ml Vial IJ 09/04/24 06:36 DIRECTED PRN PFSH Active Problems Active Problems: Problem Status Onset Code Atrial fibrillation Chronic I48.91 Dyslipidemia Acute E78.5 ALYSSA (obstructive sleep apnea) Chronic G47.33 Alcohol use Acute Z78.9 Medical History Medical History Community acquired bacterial pneumonia COVID-19 Tobacco Smoking/Tobacco Use Status: Current every day Tobacco Type: cigarettes Alcohol Alcohol Intake: former Counseling provided: provider counseling and reduce to 2 or less/day Substance Use Substance use: Never Substance use type: does not use Vital Signs and Lab Results Vital Signs Most Recent Vital Signs in EMR: Most Recent Vital Signs Temp Pulse Resp BP Pulse Ox 36.5 C 89 16 138/98 H 97 08/05/24 06:30 08/05/24 06:30 08/05/24 06:30 08/05/24 06:30 08/05/24 06:30 Lab Results Blood Type / Crossmatch: No Data to Display Complete Blood Count: No Data to Display Complete Metabolic Panel: No Data to Display Liver Function Panel: No Data to Display Coagulation Panel: No Data to Display Cardiac Panel: No Data to Display Arterial Blood Gas: No Data to Display Venous Blood Gas: No Data to Display Pancreas Panel: No Data to Display Thyroid Panel: No Data to Display Infectious Disease: No Data to Display Blood Cultures: No Data to Display Toxicology Panel: No Data to Display Anesthesia Assessment and Plan Anesthesia History Personal History: No History of Anesthesia Complications Family History: No Family History of Anesthesia Complications Exercise Tolerance Exercise Tolerance: Metabolic Equivalents>4 Pertinent Negatives Pertinent Negatives: No Symptoms of GERD Cardiac & Pulmonary Exam Cardiac Exam: Normal S1/S2 Heart Sounds Pulmonary Exam: Rhonchi Present (Right lower) Implantable Cardiac Device Does patient have a Pacemaker or an ICD?: No Airway Exam Known Difficult Airway: No Mallampati Class: 3 Mouth Opening: Normal (> 3cm) Thyromental Distance: Greater than 3 cm Neck Range of Motion: Full ROM Neck Circumference: Normal Teeth Condition: Normal Dentition ASA Classification ASA Score: ASA 2 Emergency Case?: No NPO Status NPO Status: NPO Clears >2 hours, Solids >8 hours Anesthesia Plan Resuscitation Status: Full Code Anesthesia Technique: General Anesthesia Airway Planned: Natural Airway Monitors Used: Standard Monitors
[2024-08-05 07:09] VITALS: BMI 31.6
--- NOTE | 2024-08-05 08:07 | W.PM.DSUDISC ---
Date of service: 08/05/24 Time of Service: 08:07 Discharge Plan Disposition Patient Disposition: Home Condition: Stable Discharge Details Attending Provider: Maria Teresa Redd Primary Care Provider: Kristin Nguyen Home Meds and New Rx's Prescriptions: No Action Eliquis 5 mg tablet 5 mg PO BID Qty: 180 3RF amiodarone 200 mg tablet 200 mg PO BID Qty: 90 1RF diltiazem HCl 240 mg capsule,extended release 24 hr 240 mg PO QAM Qty: 90 3RF Discharge Instructions Stand Alone Forms: DSU Cardioversion Post-Op Discharge Orders Discharge Orders: Discharge Order (Routine); Ordered 08/05/24 Ordered By: Maria Teresa Redd
--- NOTE | 2024-08-05 08:12 | W.CARDVER ---
Date of service: 08/05/24 Time of Service: 08:12 Cardioversion DATE OF PROCEDURE: 08/05/24 PRE-OP DIAGNOSES: Atrial fibrillation POST-OP DIAGNOSES: same Procedure Description: Synchronized cardioversion Informed consent was obtained and patient was brought to the operating room where he was placed in anterior posterior ZOLL pads. When he was adequately sedated he had a total of 3 synchronized shocks at 150, 200 and then 200 W seconds. Atrial fibrillation persisted. Attempts at cardioversion were abandoned. He was brought back to the recovery area and will be discharged home. Outpatient follow-up is scheduled in 2 weeks
[2024-08-05 08:15] VITALS: BP 115/78; PULSE 71; RESP 22; TEMP 36.2; O2SAT 93
[2024-08-05 08:30] VITALS: BP 94/63; PULSE 63; RESP 20; TEMP 36.2; O2SAT 96
--- NOTE | 2024-08-05 10:03 | W.ANESPOSTOP ---
Postoperative Evaluation Date, Time and Location Date Performed: 08/05/24 Time Performed: 10:03 Patient Location: Day Surgery Unit Vital Signs Most Recent Imported Vital Signs: Most Recent Vital Signs Temp Pulse Resp BP Pulse Ox 36.2 C L 63 20 94/63 L 96 08/05/24 08:30 08/05/24 08:30 08/05/24 08:30 08/05/24 08:30 08/05/24 08:30 Pain Score Most Recent Pain Score: Most Recent Pain Score Pain Level 0 08/05/24 08:30 Assessment Mental Status: Awake (Alert & Oriented to Patient Baseline) Airway and Respiratory Function: Patent airway with normal (patient baseline) respiratory exam Cardiovascular Function: Hemodynamically Stable Hydration Status: Adequately Hydrated Nausea & Vomiting: No Nausea or Vomiting Pain: Pt. Denies Any Pain Peripheral Nerve Block: Patient did not receive a nerve block
== END 2024-08-05 09:05 | disposition home or self-care (01) ==
PROVIDERS: PCP Nurse Practitioner Family; Visit Provider Internal Medicine Cardiovascular Disease
PROC: 5A2204Z Restoration of Cardiac Rhythm, Single (ICD-10-PCS; CPT 92960; principal; 2024-08-05 07:30)
DX: I48.91 Unspecified atrial fibrillation (principal)
CPT/HCPCS: 92960; 93005; 93010; J2001; J2704

== ENCOUNTER 2024-09-17 08:25 | Outpatient (CLI) | payer MEDICAID, SELFPAY | END 2024-09-17 08:26 | disposition home or self-care (01) | LOC: DI.CARD 08:25 | PROVIDERS: PCP Nurse Practitioner Family; Visit Provider Internal Medicine Cardiovascular Disease | DX: I48.91 Unspecified atrial fibrillation (principal) | CPT/HCPCS: 93010 ==

== ENCOUNTER 2024-11-21 17:07 | Outpatient (REF) | payer MEDICAID, SELFPAY ==
[2024-11-21 16:36] LABS: Abs Immature Grans 0.06 10^3/uL (0.0-0.06); Absolute Eosinophil Count 0.13 10^3/uL (0.0-0.7); Absolute Lymphocyte Count 2.86 10^3/uL (1.2-3.4); Absolute Neutrophil Count 7.45 10^3/uL (1.2-6.7); Basophils % 0.3 %; Eosinophils % 1.1 %; HCT 52.5 % (40.0-50.0); HGB 17.8 g/dL (13.5-17.5); Immature Grans % 0.5 %; Lymphocytes % 24.6 %; MCH 31.7 pg (27.0-33.0); MCHC 33.9 % (32.0-36.0); MCV 94 fL (80-95); MPV 10.4 fL (8.0-11.0); Monocytes % 9.5 %; Platelet Count 248 10^3/uL (130-400); RBC 5.61 10^6/uL (4.36-5.78); RDW 12.4 % (11.8-14.1); RDW-SD 42.6 fL; WBC 11.64 10^3/uL (4.4-10.8)
[2024-11-21 16:38] LABS: Absolute Basophil Count 0.03 10^3/uL (0.0-0.2); Absolute Monocyte Count 1.11 10^3/uL (0.1-0.8)
[2024-11-21 17:06] LABS: Procalcitonin < 0.10 ng/mL
[2024-11-21 17:54] LABS: ALT 39 U/L (16-63); AST 30 U/L (15-37); Albumin 3.9 g/dL (3.4-5.0); Alkaline Phosphatase 101 U/L (46-116); Anion Gap 11.6 mmol/L (3-11); BUN 12 mg/dL (7-18); Bilirubin, Total 0.34 mg/dL (0.2-1.0); CO2 23.4 mmol/L (21.0-32.0); CREATININE 1.1 mg/dL (0.70-1.30); Calcium 9.7 mg/dL (8.5-10.1); Chloride 102 mmol/L (98-107); Estimated GFR 81.78 (mL/min/1.73m2); Glucose 125 mg/dL (74-106); Potassium 3.8 mmol/L (3.5-5.1); Sodium 137 mmol/L (136-145); Total Protein 7.6 g/dL (6.4-8.2)
[2024-11-22 18:39] LABS: IgE 13 IU/mL (<158)
== END 2024-11-21 17:08 | disposition home or self-care (01) ==
LOC: LBN 17:07
PROVIDERS: PCP Nurse Practitioner Family; Visit Provider Physician Assistant Surgical
DX: J15.9 Unspecified bacterial pneumonia (principal); I48.91 Unspecified atrial fibrillation; G47.33 Obstructive sleep apnea (adult) (pediatric)
CPT/HCPCS: 80053; 84145; 82785; 85025

== ENCOUNTER 2024-11-26 01:15 | Outpatient (CLI) | payer MEDICAID, SELFPAY ==
--- NOTE | 2024-11-26 08:56 | DI.CT_ITS ---
Exam(s) CT CHEST WO EXAM: CT CHEST WO CLINICAL HISTORY: f/u pneumonia,j15.9. TECHNIQUE: Imaging protocol: Axial computed tomography images were obtained and coronal and sagittal reformatted images were created and reviewed. Lung Computer Aided Detection (CAD) was utilized. COMPARISON: CT CT CHEST W from 08/01/2024 FINDINGS: Tracheobronchial tree: Patent where visualized. No bronchiectasis is present. Pulmonary parenchyma: Mild centrilobular emphysematous changes are seen in the right lung apex. The right lower lobe infiltrate has resolved with mild scarring present. No focal consolidating infiltra oumar are present. No architectural distortion. Mediastinum and Elina: No dominant adenopathy or fluid collection. The esophagus is unremarkable. Thyroid gland: Unremarkable. Pleura: No effusion or pneumothorax. Heart: The heart is not dilated. No coronary artery calcifications are seen. No pericardial effusion. Aorta: Thoracic aorta non-dilated. Upper abdomen: Unremarkable. Lymph nodes: Within normal limits. Soft tissues: Unremarkable. Bones:Within normal limits for the patient's age. IMPRESSION: Resolution of the right lower lobe infiltrate with mild residual scarring present. No acute pulmonar y process. RADIATION DOSE DELIVERED: 320.95mGy.cm Total DLP 320.95mGy.cm Total DLP DATA REPOSITORY: All CT scans at this facility are submitted to the National Radiology Data Registry (NRDR) Dose Index Registry (DIR) with the [employer] (A[employer]). RADIATION OPTIMIZATION: All CT scans at this facility use at least one of these dose optimization te chniques: automated exposure control; mA and/or kV adjustment per patient size (includes targeted exa ms where dose is matched to clinical indication); or iterative reconstruction.
== END 2024-11-26 01:35 ==
LOC: DI 01:15
PROVIDERS: PCP Nurse Practitioner Family; Visit Provider Physician Assistant Surgical
DX: J15.9 Unspecified bacterial pneumonia (principal)
CPT/HCPCS: 71250

== ENCOUNTER 2024-12-24 01:44 | Outpatient (CLI) | payer MEDICAID, SELFPAY ==
[2024-12-24] MEDS: Inhaler, Assist Device 1 EACH MC (11:27)
[2024-12-24] MEDS: Levalbuterol HFA 15 GM INH 4 PUFF IH (11:27)
--- NOTE | 2024-12-24 15:57 | W.PFT ---
Date of service: 12/24/24 Time of Service: 10:05 Pulmonary Function Test Result Indications: Dyspnea Interpretation Spirometry: There is no airflow limitation. No bronchodilator response.FVC is low. Lung Volumes: Normal lung volumes Diffusion Capacity: Decreased diffusion Airway Pressure: Normal airways resistance Impression Decreased diffusion and a low FVC but normal TLC. This may reflect ILD, however the FVC may be decreased due to an elevated BMI. Clinical Correlation therefore is recommended.
== END 2024-12-24 01:45 | disposition home or self-care (01) ==
LOC: RT 01:52
PROVIDERS: PCP Nurse Practitioner Family; Visit Provider Student in an Organized Health Care Education/Training Program
DX: F17.210 Nicotine dependence, cigarettes, uncomplicated (principal); R06.09 Other forms of dyspnea; G47.33 Obstructive sleep apnea (adult) (pediatric)
CPT/HCPCS: 94060; 94726; 94729

== ENCOUNTER 2025-02-24 10:37 | Outpatient (REF) | payer MEDICAID, SELFPAY ==
[2025-02-24 15:38] LABS: Absolute Eosinophil Count 0.08 10^3/uL (0.0-0.7); Absolute Lymphocyte Count 2.27 10^3/uL (1.2-3.4); Absolute Monocyte Count 1.34 10^3/uL (0.1-0.8); Absolute Neutrophil Count 9.06 10^3/uL (1.2-6.7); Basophils % 0.5 %; Eosinophils % 0.6 %; HCT 49.2 % (40.0-50.0); HGB 16.7 g/dL (13.5-17.5); Immature Grans % 0.8 %; Lymphocytes % 17.6 %; MCH 32.4 pg (27.0-33.0); MCHC 33.9 % (32.0-36.0); MCV 95 fL (80-95); MPV 10.9 fL (8.0-11.0); Monocytes % 10.4 %; Neutrophils % 70.1 %; Platelet Count 242 10^3/uL (130-400); RBC 5.16 10^6/uL (4.36-5.78); RDW 12.5 % (11.8-14.1); RDW-SD 44.7 fL; WBC 12.92 10^3/uL (4.4-10.8)
[2025-02-24 15:39] LABS: Absolute Basophil Count 0.06 10^3/uL (0.0-0.2)
[2025-02-24 16:17] LABS: ALT 42 U/L (16-63); AST 21 U/L (15-37); Albumin 4.2 g/dL (3.4-5.0); Alkaline Phosphatase 95 U/L (46-116); Anion Gap 15.2 mmol/L (3-11); BUN 15 mg/dL (7-18); Bilirubin, Total 0.3 mg/dL (0.2-1.0); CO2 21.8 mmol/L (21.0-32.0); CREATININE 0.9 mg/dL (0.70-1.30); Calcium 9.9 mg/dL (8.5-10.1); Calculated LDL 175 mg/dL (<100); Chloride 105 mmol/L (98-107); Cholesterol 252 mg/dL (<200); Glucose 89 mg/dL (74-106); HDL Cholesterol 42 mg/dL (>or=40); Potassium 4.2 mmol/L (3.5-5.1); Sodium 142 mmol/L (136-145); Total Protein 7.4 g/dL (6.4-8.2); Triglyceride 176 mg/dL (<150)
[2025-02-24 16:31] LABS: Hemoglobin A1C 5.4 % (<5.7)
[2025-02-25 11:11] LABS: HIV-1/2 Ag & Ab Screen Negative (Negative)
[2025-02-25 11:15] LABS: Hepatitis C Ab w Rflx HCV PCR Negative (Negative)
== END 2025-02-24 10:38 | disposition home or self-care (01) ==
LOC: NCHCN 10:37
PROVIDERS: PCP Nurse Practitioner Family; Visit Provider Nurse Practitioner Family
DX: E78.5 Hyperlipidemia, unspecified (principal); Z00.00 Encounter for general adult medical examination without abnormal findings; R73.03 Prediabetes
CPT/HCPCS: 80053; 80061; 86803; 87389; 83036; 85025

== ENCOUNTER 2025-04-25 12:31 | Outpatient (REF) | payer MEDICAID, SELFPAY ==
[2025-04-25 16:04] LABS: Abs Immature Grans 0.06 10^3/uL (0.0-0.06); Absolute Basophil Count 0.05 10^3/uL (0.0-0.2); Absolute Eosinophil Count 0.14 10^3/uL (0.0-0.7); Absolute Lymphocyte Count 2.49 10^3/uL (1.2-3.4); Absolute Monocyte Count 1.09 10^3/uL (0.1-0.8); Absolute Neutrophil Count 6.01 10^3/uL (1.2-6.7); Basophils % 0.5 %; Eosinophils % 1.4 %; HCT 48.7 % (40.0-50.0); HGB 16.5 g/dL (13.5-17.5); Immature Grans % 0.6 %; Lymphocytes % 25.3 %; MCH 32.5 pg (27.0-33.0); MCHC 33.9 % (32.0-36.0); MCV 96 fL (80-95); MPV 10.4 fL (8.0-11.0); Monocytes % 11.1 %; Neutrophils % 61.1 %; Platelet Count 267 10^3/uL (130-400); RBC 5.08 10^6/uL (4.36-5.78); RDW-SD 42.6 fL; WBC 9.84 10^3/uL (4.4-10.8)
[2025-04-25 16:29] LABS: ALT 52 U/L (16-63); AST 25 U/L (15-37); Albumin 3.9 g/dL (3.4-5.0); Alkaline Phosphatase 89 U/L (46-116); Anion Gap 11.2 mmol/L (3-11); BUN 13 mg/dL (7-18); Bilirubin, Total 0.3 mg/dL (0.2-1.0); CO2 25.8 mmol/L (21.0-32.0); CREATININE 1.3 mg/dL (0.70-1.30); Calcium 9.1 mg/dL (8.5-10.1); Calculated LDL 101 mg/dL (<100); Chloride 104 mmol/L (98-107); Cholesterol 166 mg/dL (<200); Estimated GFR 66.51 (mL/min/1.73m2); Glucose 165 mg/dL (74-106); HDL Cholesterol 38 mg/dL (>or=40); Potassium 4.1 mmol/L (3.5-5.1); Sodium 141 mmol/L (136-145); Total Protein 7.1 g/dL (6.4-8.2); Triglyceride 135 mg/dL (<150)
== END 2025-04-25 12:32 | disposition home or self-care (01) ==
LOC: NCHCN 12:31
PROVIDERS: PCP Nurse Practitioner Family; Visit Provider Nurse Practitioner Family
DX: E78.5 Hyperlipidemia, unspecified (principal); R79.89 Other specified abnormal findings of blood chemistry
CPT/HCPCS: 80053; 80061; 85025

== ENCOUNTER → 2025-09-29 02:21 | Outpatient (CLI) | payer MEDICAID, SELFPAY ==
--- NOTE | 2025-09-29 06:29 | DI.NM_ITS ---
APPROVED REPORT Exam: Exercise Treadmill Patient Location: Out-Patient Room/Bed: Stress Nurse: Debbie Smith RN Ordering Provider:MARGIE SANDOVALD, Contact Number: BMI: 30.86 Baseline Rhythm: Atrial Fibrillation Comment: Occasional PVC's Indications: Chest pain, atrial fibrillation, sleep apnea Medical History Medical History: ALYSSA, afib, tobacco use, chronic lung disease, prediabetes, dyslipidemia, alcohol use Cardiac Medications: Stiolto respimat, apixaban, famotidine, rosuvastatin, trazodone, chantix, ventolin HFA, diltiazem Allergies: Penicillins Cardiac Risk Factors: HLD, smoker Previous Cardiac Procedures: None Pretest Chest Pain Characteristics: None Exercise History: Indeterminate Physical Disabilities: None Lung Sounds: Clear to auscultation Heart Sounds: Irregular Stress Test Details Test: Exercise stress testing was performed using a Jonathan protocol. Nuclear Acquisition: Rest Tc-99m/Stress Tc-99m 1 day Rest Isotope: Tc-99m Sestamibi. Dose: 12.0 Date: 09/29/2025 Injection Time: 0900 Stress Isotope: Tc-99m Sestamibi. Dose: 36.0 Date: 09/29/2025 Injection Time: 1136 HR Resting HR Supine: 80 bpm Max Heart Rate (APMHR): 169 bpm Resting HR Standin bpm Target HR (85% APMHR): 144 bpm Max HR Achieved: 167 bpm % of APMHR: 99 Recovery HR: 99 bpm HR response to stress: Normal HR response to stress BP Resting BP Supine: 118/82 mmHg Resting BP Standin/88 mmHg Max BP: 148/78 mmHg Recovery BP: 114/80 mmHg BP response to stress: Normal blood pressure response to stress. ECG Resting ECG: Atrial Fibrillation Ectopy: Occasional PVC's Stress ECG: Atrial Fibrillation ST Change: No significant ST segment changes noted Arrhythmia: Occasional PVC's Recovery ECG: Atrial Fibrillation Recovery ST Change: No significant ST segment changes noted Recovery Arrhythmia: Occasional PVC's Clinical Reason for Termination: Target HR Achieved, mod SOB Stress Symptoms: Mod SOB Exercise duration: 04 min52 sec Highest Stage Reached: Stage 2: 2.5 mph at 12% grade. Exercise capacity: 6.86 METs Angina Score: None Rate Pressure Product: 82034 Stress ECG Conclusion 1. Resting EKG showed atrial fibrillation but was otherwise normal 2. Patient exercised on the Jonathan protocol and completed a workload of 7 METS 3. Normal heart rate and blood pressure response to exercise. The patient achieved 99% of maximal predicted heart rate for age 4. There was no electrocardiographic evidence of myocardial ischemia 5. See MPI report Stress Test Summary STAGE Time (mins) Speed (mph) Grade (%) HR BP SpO2 SYMPTOMS METS Supine 80 118/82 95% Standing 90 122/88 1 3 1.7 10 138 4.5 2 6 2.5 12 150 7 1 min recovery 140 148/78 3 min recovery 111 142/90 99% 6 min recovery 99 114/80 98% Treadmill stopped due to moderate SOB and patient meeting target HR. All symptoms resolved at test end. Patient proceeded to imaging ambulatory in no apparent distress. MPI Conclusion Myocardial perfusion is normal. There is no ischemia or evidence of prior infarction
== END ==
PROVIDERS: PCP Family Medicine; Visit Provider Internal Medicine Cardiovascular Disease
DX: I48.91 Unspecified atrial fibrillation (principal); R07.9 Chest pain, unspecified; G47.33 Obstructive sleep apnea (adult) (pediatric)
CPT/HCPCS: 78452; 93017